=== PATIENT | male | born 1965 | race Caucasian/White ===

== ENCOUNTER → 2017-02-15 10:47 | Outpatient (CLI) | payer MEDICARE | END | disposition home or self-care (01) | LOC: D.CATH 10:47 | DX: I20.9 Angina pectoris, unspecified (principal); R94.30 Abnormal result of cardiovascular function study, unspecified; E78.5 Hyperlipidemia, unspecified; E11.9 Type 2 diabetes mellitus without complications; Z01.812 Encounter for preprocedural laboratory examination ==

== ENCOUNTER → 2017-03-01 12:17 | Outpatient (CLI) | payer MEDICARE ==
[2017-02-15 11:16] VITALS: BMI 45.7
[~2017-03-01 12:17] MED LIST: CATAPRES0.1 MG PO; DIOVAN160 MG PO; DYAZIDE 37.5/251 CAP PO; GLUCOPHAGE500 MG PO; JANUVIA100 MG PO; LIPITOR40 MG PO; PLAVIX75 MG PO; TOPROL XL100 MG PO
[2017-03-02 11:17] LABS: HEPATITIS C ANTIBODY <0.1 (0.0-0.9)
== END | disposition home or self-care (01) ==
LOC: D.LAB 12:17 → D.US 13:30
PROVIDERS: Internal Medicine Cardiovascular Disease
DX: Z01.812 Encounter for preprocedural laboratory examination (principal); I65.29 Occlusion and stenosis of unspecified carotid artery

== ENCOUNTER 2017-03-21 05:11 | Inpatient (IN) | payer MEDICARE ==
--- NOTE | 2017-03-13 11:37 | HP ---
PATIENT: LANNY DONG MEDICAL RECORD: [id number] ACCOUNT: [id number] LOCATION:[facility] : 67 ADMISSION DATE: 03/21/17 HISTORY AND PHYSICAL EXAMINATION NameMULANNY PARRISH (51yo, M) ID# [id number]. Date/Time02/23/2017 01:55KIDHC1966[facility] Dept.[facility] ClinicProviderEDDAVID CHAN MDInsuranceMed Primary: [place] Insurance # : [id number] Referring Provider Name : IVONNE CERDA MD Employer Name : UNKNOWN Prescription: Estoreify - This member could not be found in the payer's files. Please verify coverage and all member demographic information. Chief Complaint Coronary artery disease Patient's Care Team Referring Provider (): IVONNE CERDA MD: [address] [place] [address], , Metal Roofing Mechanic: BARBARA GAY MD Patient's Pharmacies [facility] (ERX): [address] [place] [address], , Vitals BP:114/70 sitting R arm 02/23/2017 02:11 pm 102/70 sitting R arm 02/23/2017 02:11 pmHR:88R/R 02/23/2017 02:11 pmHt:5 ft 8 in 02/23/2017 02:08 pmWt:300 lbs 02/23/2017 02:08 pmBMI:45.6 02/23/2017 02:08 pmAllergies Reviewed Allergies NKDAMedications Reviewed Medications cloNIDine 0.1mg daily02/19/17 enteredCindy Brownclopidogrel 75 mg tablet Take 1 tablet(s) every day by oral route.02/23/17 enteredCindy BrownDiovan 160 mg tablet Take 1 tablet(s) every day by oral route.02/19/17 enteredCindy BrownJanuvia 100 mg tablet Take 1 tablet(s) every day by oral route.02/19/17 enteredCindy BrownLipitor 40 mg tablet Take 1 tablet(s) every day by oral route.02/19/17 Isabelle Guometoprolol succinate ER 100 mg tablet,extended release 24 hr Take 1 tablet(s) every day by oral route.02/19/17 Isabelle GuoNovofine Autocover 30 gauge x 1/3" needle USA MJSIQQRE21/17/17 wcixyinmirsqixlprUttrRKV39/18/17 Isabelle Guotriamterene 37.5 mg-hydrochlorothiazide 25 mg tablet Take 1 tablet(s) every day by oral route.02/19/17 enteredSharlene GuoProblems Reviewed Problems Coronary atherosclerosis - Onset: 02/19/2017 Family History Discussed Family History Mother- Heart diseaseFather- Heart diseaseMaternal Grandfather- Heart diseaseMaternal Uncle- Heart diseaseSocial History Discussed Social History Cardiology Family history of heart disease?: Y HISTORY AND PHYSICAL [id number] LANNY DONG Smoking Status: Never smoker High Cholesterol: Y High blood pressure: Y Surgical History Reviewed Surgical History Carotid Endarterectomy - Left Other - cholecystectomy Past Medical History Discussed Past Medical History Angina: Y Dizzy Spells: Y Heart Disease: Y High Blood Pressure: Y Hyperlipidemia: Y Shortness of Breath: Y Stroke: Y Swelling of Ankles, Feet or Hands: Y Documents for Discussion N/A Screening None recorded. HPI Coronary Artery Disease F/U Reported by patient. Associated Symptoms: dyspnea with exertion coronary artery disease ROS Patient reports exercise intolerance but reports no fever, no night sweats, no significant weight gain, and no significant weight loss. He reports chest pain on exertion, shortness of breath when walking, and shortness of breath when lying down but reports no arm pain on exertion, no palpitations, and no known heart murmur. He reports no dry eyes, no irritat ion, and no vision change. He reports no difficulty hearing and no ear pain. He reports no frequent nosebleeds and no nose/sinus problems. He reports no sore throat, no bleeding gums, no snoring, no dry mouth, no mouth ulcers, no oral abnormalities, and n o teeth problems. He reports no jugular vein distension and no swollen glands. He reports no cough, no wheezing, no shortness of breath, and no coughing up blood. He reports no abdominal pain, no vomiting, normal appetite, no diarrhea, not vomiting blood, n o nausea, and no constipation. He reports no incontinence, no difficulty urinating, no hematuria, and no increased frequency. He reports no muscle aches, no muscle weakness, no arthralgias/joint pain, no back pain, and no swelling in the extremities. He r e ports no abnormal mole, no jaundice, and no rashes. He reports no loss of consciousness, no weakness, no numbness, no seizures, no dizziness, and no headaches. He reports no depression, no sleep disturbances, feeling safe in relationship, and no alcohol a buse. He reports no fatigue. He reports no swollen glands and no bruising. He reports no runny nose, no sinus pressure, no itching, no hives, and no frequent sneezing. ROS as noted in the HPI Physical Exam Patient is a 51-year-old male. Constitutional: General Appearance healthy-appearing and obese. Level of Distress NAD. Ambulation ambulating normally. HISTORY AND PHYSICAL [id number] LANNY DONG Cardiovascular: Apical Impulse not displaced or no thrill. Heart Auscultation normal s1 and s2; no murmurs, rubs, or gallops; and RRR. Arterial Pulses no abdominal aorta bruits, femoral bruits, or popliteal bruits and 2+ bilateral, carotid 2+ bilateral, femoral 2+ bilateral, popliteal 2+ bilateral, and dorsalis pedis 2+ bilateral. Edema no edema or varicosities. Lungs: Repiratory Effort no dyspnea. Percussion no hyperresonance or dullness or flatness. Auscultation no wheezing, rhonchi, or rales / crackles and breathing sounds normal, good air movement, and CTA except as noted. Abdomen: Bowl Sounds normal. Inspection and Palpation no tenderness, guarding, masses, or rebound tenderness and soft and non-distended. Liver non-tender and no hepatomegaly. Spleen non-tender and no splenomegaly. Hernia none palpable. Musculoskeletal System: Gait And Stance normal gait and stance. Digits and Nails normal nails and no cyanosis. Neurologic: Cranial Nerves grossly intact. Reflexes DTRs 2+ bilaterally throughout. Sensation grossly intact. Lymph Nodes: Lymph Nodes no cervical LAD, supraclavicular LAD, axillary LAD, or inguinal LAD. Eyes: Lids and Conjunctivae no discharge or pallor and non-injected. Pupils PERRLA. Cornea grossly intact. EOM EOMI. Lens clear. Sclerae non-icteric. Neck: Neck no masses or enlarged lymph nodes and supple, trachea midline, and carotid bruits (left). Thyroid no enlargement or nodules and non-tender. Skin: Inspection and Palpation no rash, lesions, ulcers, jaundice, or abnormal nevi. Assessment / Plan coronary atherosclerosis with angina: Shortness of breath 1. Coronary atherosclerosis - angina equivalent and shortness of breath I25.118: Atherosclerotic heart disease of [place] coronary artery with other forms of angina pectoris Discussion Notes I have discussed the patient's disease process with him and his in detail as well as the alternative method s of treatment we discussed coronary artery bypass including the expected benefits and risk which included bleeding, effects from, stroke, , and the imponderables. He will need to be off Plavix for a week before surgery and we will contact him with a day. He is to come to the emergency room for any unusual symptom changes, chest pain ,or significant shortness of breath HISTORY AND PHYSICAL [id number] LANNY DONG EDWARD MD at 1137 CC: [id number] DICTATION DATE: 02/23/17 1345 INKER MACHINE: CHANDNI 03/08/17 0936 PRE IN [facility] [address] [place] [address]
[2017-03-20 15:35] LABS: BASOPHILS 0.1 % (0-2); EOSINOPHILS 1.5 % (0-7); HEMATOCRIT 39.5 % (42.0-54.0); HEMOGLOBIN 13.4 g/dL (13.5-17.5); IMMATURE GRANULOCYTES 0.2 % (0-5); LYMPHOCYTES 22.4 % (15-50); MCH 30.5 pg (26.0-34.0); MCHC 33.9 g/dL (31.0-37.0); MEAN PLATELET VOLUME 11.6 fL (7.4-10.4); MONOCYTES 5.2 % (2-11); NEUTROPHILS 70.6 % (40-80); PLATELET COUNT 183 10x3/uL (130-400); RBC 4.39 10x6/uL (4.20-6.10); RDW 14.1 % (11.5-14.5); WBC 9.1 10x3/uL (4.8-10.8)
[2017-03-20 15:48] LABS: HEMOGLOBIN A1C 11.1 % (4.8-6.0)
[2017-03-20 15:58] LABS: ALBUMIN 3.1 g/dL (3.4-5.0); ALKALINE PHOSPHATASE 110 U/L (46-116); ALT (SGPT) 24 U/L (10-68); CALC OSMOLALITY 288 mosm/kg (275-300); CALCIUM 8.7 mg/dL (8.5-10.1); CARBON DIOXIDE 28.9 mmol/L (21.0-32.0); CHLORIDE - SERUM 101 mmol/L (98-107); CHOLESTEROL, TOTAL 111 mg/dL (0-200); CREATININE - SERUM 0.9 mg/dL (0.6-1.3); PHOSPHOROUS 3.7 mg/dL (2.5-4.9); POTASSIUM - SERUM 3.9 mmol/L (3.5-5.1); PROTEIN - SERUM 7.5 g/dL (6.4-8.2); SODIUM 137 mmol/L (136-145); T4 THYROXIN - FREE 1.14 ng/dL (0.76-1.46); THYROID STIMULATING HORMONE 2.26 uIU/mL (0.36-3.74); UREA NITROGEN 19 mg/dL (7-18); URIC ACID 5.2 mg/dL (2.6-7.2); eGFR NON AFRICAN AMERICAN > 90 mL/min (90-120)
[2017-03-20 15:59] LABS: APTT 26.8 SECONDS (22.8-39.4); INR 0.97 (0.85-1.17); PROTIME 12.7 SECONDS (11.6-15.0)
[2017-03-20 16:07] LABS: COLD SCREEN @ 4 DEGREES 2+ (NEGATIVE); COLD SCREEN ROOM TEMP NEGATIVE (NEGATIVE); GLUCOSE 333 mg/dL (74-106)
[2017-03-20 16:26] LABS: APPEARANCE CLEAR (CLEAR); BILIRUBIN NEGATIVE (NEGATIVE); COLOR YELLOW (YELLOW); GLUCOSE 500 mg/dL (NEGATIVE); KETONE NEGATIVE (NEGATIVE); NITRITE NEGATIVE (NEGATIVE); PROTEIN NEGATIVE (NEGATIVE); SPECIFIC GRAVITY 1.015 (1.005-1.020); UROBILINOGEN NORMAL (NORMAL)
[2017-03-21] VITALS (33 sets, daily range): BP systolic 90–190; BP diastolic 50–97; BMI 44.9; BMI 21.4
--- NOTE | 2017-03-21 01:00 | NUR ---
PT RESTING COMFORTABLY. PT SYSTOLIC BP DROPPING. TOOK HIS MANAGER PRODUCT MANAGEMENT BUTTON AWAY FOR A SHORT TIME AND BP CAME BACK TO NORMAL.
[2017-03-21 09:04] LABS: PLT FUNCT.(P2Y12) PLAVIX 277 PRU (194-418)
[2017-03-21 15:07] LABS: HEMOGLOBIN 11.5 g/dL (13.5-17.5); MCH 30.2 pg (26.0-34.0); MCHC 33.8 g/dL (31.0-37.0); MCV 89.2 fL (80.0-100.0); MEAN PLATELET VOLUME 11.5 fL (7.4-10.4); RBC 3.81 10x6/uL (4.20-6.10); RDW 14.1 % (11.5-14.5); WBC 25.8 10x3/uL (4.8-10.8)
[2017-03-21 15:19] LABS: APTT 40.5 SECONDS (22.8-39.4); INR 1.26 (0.85-1.17); PROTIME 15.7 SECONDS (11.6-15.0)
[2017-03-21 15:22] LABS: CALCIUM 7.6 mg/dL (8.5-10.1); CARBON DIOXIDE 24.5 mmol/L (21.0-32.0); CHLORIDE - SERUM 107 mmol/L (98-107); SODIUM 145 mmol/L (136-145); UREA NITROGEN 19 mg/dL (7-18); eGFR NON AFRICAN AMERICAN 84 mL/min (90-120)
[2017-03-21 15:23] LABS: CALC OSMOLALITY 297 mosm/kg (275-300); GLUCOSE 230 mg/dL (74-106); POTASSIUM - SERUM 3.2 mmol/L (3.5-5.1)
--- NOTE | 2017-03-21 15:52 | NUR ---
PT ARRIVED BY BED TO ROOM. SWITCHED OVER TO ICU MONITORS.
--- NOTE | 2017-03-21 17:00 | NUR ---
DR. CHAN CALLED AND REPORTED PT'S CONTINUAL HIGH FSBS. STATED THAT PT IS ON 20 UNITS OF REGULAR INSULIN AN HOUR AT THIS TIME. STATED TO TIRATE GTT ACCORDING TO FSBS. STATES HE EXPECTS HIS FSBS'S TO BE ELEVATED. WILL CONT TO ASSESS.
--- NOTE | 2017-03-21 18:00 | NUR ---
DR. CHAN AT BEDSIDE. UPDATE PROVIDED.
--- NOTE | 2017-03-21 19:30 | NUR ---
REPORT RECIEVED ASSESSMENT COMPLTED. SEE FLOW SHEET FOR FURTHER DETAILS. PT SWAN GANNZ ESTIMATED AT 59 CM. CHEST TUBES NOTED TO 20 CM SUCTION AND NO LEAKS NOTED. TPM WIRES SECURED TO CHEST. WEANING OFF VENT NOW. WILL CONTINUE 1 ON 1 NURSING CARE.
--- NOTE | 2017-03-21 19:46 | NUR ---
ORAL CARE DONE
--- NOTE | 2017-03-21 19:57 | NUR ---
NOTIFIED ABOUT ABG. NEW ORDERS PROVIDED. WILL CONTINUE 1 ON 1 NURSING CARE.
--- NOTE | 2017-03-21 21:12 | NUR ---
PT EXTUBATED. RESTRAINTS REMOVED. FAMILY INTO SEE PT. WILL CONTINUE 1 ON 1 NURSING CARE.
--- NOTE | 2017-03-21 23:00 | NUR ---
REASSESSMENT COMPLETED. NO ACUTE CHANGES AT THIS TIME. PT POSITINED FOR COMFORT. WILL CONTINUE 1 ON 1 NURSING CARE.
[2017-03-22] VITALS (93 sets, daily range): BP systolic 80–119; BP diastolic 31–85; BMI 48.0
--- NOTE | 2017-03-22 01:00 | NUR ---
PT RESTING COMFORTABLY. SYSTOLIC BP TRENDING DOWN DO TO PAINTER SET USE. VERY SENSITIVE TO PAINTER SET USE. WILL CONTINUE 1 ON 1 NURSING CARE.
--- NOTE | 2017-03-22 03:00 | NUR ---
REASSESSMENT COMPLETED. NO CHANGES AT THIS TIME. REPOSITIONED FOR COMFORT. EDUCATED PT ON COUGHING AND DEEP BREATHING. I.S. WITH THE BEST EFFORT OF 500. WILL CONTINUE 1 ON 1 NURSING CARE.
--- NOTE | 2017-03-22 05:51 | NUR ---
NOTIFIED OF URINE OUTPUT AND BP SYSTOLIC IN THE 80'S. UPDATED ON LABS AND ABG. STATED HE WOULD SEE HIM THIS MORNING. WILL CONTIUE 1 ON 1 NURSING CARE.
[2017-03-22 05:57] LABS: HEMATOCRIT 30.5 % (42.0-54.0); HEMOGLOBIN 10.4 g/dL (13.5-17.5); MCH 30.8 pg (26.0-34.0); MCHC 34.1 g/dL (31.0-37.0); MCV 90.2 fL (80.0-100.0); MEAN PLATELET VOLUME 11.1 fL (7.4-10.4); RBC 3.38 10x6/uL (4.20-6.10); RDW 14.9 % (11.5-14.5); WBC 22.1 10x3/uL (4.8-10.8)
[2017-03-22 06:10] LABS: ALBUMIN 3.5 g/dL (3.4-5.0); BILIRUBIN - TOTAL 0.9 mg/dL (0.2-1.3); CALCIUM 7.8 mg/dL (8.5-10.1); CARBON DIOXIDE 29.8 mmol/L (21.0-32.0)
[2017-03-22 06:12] LABS: ANION GAP 11.6 mmol/L (8-16); CREATININE - SERUM 1.3 mg/dL (0.6-1.3); POTASSIUM - SERUM 4.4 mmol/L (3.5-5.1)
--- NOTE | 2017-03-22 06:52 | NUR ---
ORAL CARE DONE WITH PERIDEX
--- NOTE | 2017-03-22 07:15 | NUR ---
REPORT RECIEVED FROM JUNIOR MEDIA BUYER NURSE. PT RESTING IN BED. FULL ASSESSMENT COMPLETE PER FLOWSHEET. VSS AT THIS TIME. CALL LIGHT IN REACH. BED IN LOW POSITION. PLAN OF CARE CONT'D. 1:1 CARE CONT'D. WILL MONITOR FOR CHANGES.
--- NOTE | 2017-03-22 09:00 | NUR ---
DR. CHAN AT BEDSIDE. UPDATE PROVIDED.
--- NOTE | 2017-03-22 11:00 | NUR ---
REASSESSMENT COMPLETE PER FLOWSHEET. REFER FOR DETAILS.
--- NOTE | 2017-03-22 13:57 | TEE ---
PATIENT:LANNY DONG MEDICAL RECORD: [id number] LOCATION:[place] [address] AGE OF PATIENT: 51 ADMISSION DATE: 03/21/17 SEX: M REFERRING PHYSICIAN: INTERPRETING PHYSICIAN: BARBARA GAY MD TRANSESOPHAGEAL ECHOCARDIOGRAM KYUNG CHARGE Y INDICATIONS: CABG PREMEDICATIONS: PATIENT'S RESPONSE PROCEDURE DOPPLER MEASUREMENTS: LVIT LA PA RA LVOT RVOT Asc. Ao AV Gradient Peak AV Mean AV Area MV Gradient Peak MV Mean MV Area INTERPRETATION: LVd: 4.7 cm LVs: 2.9 cm Doppler: 2-D: COLOR FLOW DOPPLER NORMAL SALINE STUDY: MISCELLANOUS: DIAGNOSIS: PLAN: Net Front End Developer:3 Dr. Whalen Extras Casting Director: 1 ARTURO BRYSON COMMENTS: DATE OF SERVICE: 03/21/2017 TRANSESOPHAGEAL ECHO DESCRIPTION OF PROCEDURE: Intraoperatively, post-CABG shows LVH. LV internal dimensions appear normal. Wall motion is normal except for mild septal hypokinesis consistent with postop CABG state. Estimated EF 50%. Aortic valve appears tricuspid. Left atrium appears normal. Mitral valve appears normal with no significant MR. Right-sided chambers appear grossly normal per TRANSESOPHAGEAL ECHOCARDIOGRAM REPORT [id number] LANNY DONG intraoperative transesophageal post-CABG. TRANSINT:[id number] Voice Confirmation ID: [id number] DOCUMENT ID: [id number] at 1357 CC: [id number] DICTATION DATE: 03/21/17 1259 SHERIFFS DETECTIVE: 03/22/17 0135 ADM IN [facility] [address] [place] [address]
--- NOTE | 2017-03-22 14:45 | NUR ---
NARCISA LAUREANO CALLED IN REGARDS TO PT'S CURRENT ABG.
--- NOTE | 2017-03-22 15:00 | NUR ---
REASSESSMENT COMPLETE PER FLOWSHEET. REFER FOR DETAILS.
--- NOTE | 2017-03-22 15:50 | NUR ---
PLACED ON BIPAP PER ORDER. WILL CONT TO ASSESS.
--- NOTE | 2017-03-22 17:00 | NUR ---
AT BEDSIDE. UPDATE PROVIDED.
--- NOTE | 2017-03-22 17:40 | OP ---
PATIENT NAME: LANNY DONG MEDICAL RECORD: [id number] :67 LOCATION:[facility] ADMISSION DATE:03/21/17 SURGEON: JASON LARA MD DATE OF OPERATION: 03/21/2017 SURGEON: Jason Lara MD ANESTHESIA: General endotracheal, Dr. Blue. OPERATIONS PERFORMED: Aortocoronary artery bypass utilizing left internal thoracic, left anterior descending, reverse saphenous vein segment to the posterior descending and reverse saphenous vein segment to sequential first obtuse marginal, sequential second obtuse marginal. PREOPERATIVE DIAGNOSES: Angina pectoris and severe occlusive coronary artery disease. POSTOPERATIVE DIAGNOSES: Angina pectoris and severe occlusive coronary artery disease. INDICATION FOR OPERATION: Angina pectoris. FINDINGS AT OPERATION: The right greater saphenous vein in the thigh was of excellent quality as was the left internal thoracic artery. The target vessels were of good quality and caliber as well. The left anterior descending was intramyocardial in its proximal portion. The distal portion is not graftable and will require further intervention in the future. ESTIMATED BLOOD LOSS: Cell Saver was used. DESCRIPTION OF PROCEDURE: After informed consent, adequate preoperative medication evaluation, the patient was brought to the operating room, placed on the table in the supine position. After induction of general endotracheal anesthesia and application of appropriate monitoring devices, the chest, neck, abdomen, and both legs were prepped and draped in a sterile field, utilizing Betadine scrub, alcohol, and Betadine solution. A Betadine-impregnated drape was also used. Saphenous vein was harvested from right leg and prepared for reverse saphenous vein grafting. The leg was closed over drains utilizing 3-0 Vicryl and skin yasmeen. A median sternotomy incision was made and dissection carried down to the fascia. Hemostasis was maintained with electrocautery. Sternum was divided. Innominate vein was identified and protected. Left internal thoracic was taken down and prepared for grafting. The patient was given a calculated dose of heparin, cannulated in the standard fashion utilizing 1 aortic, 1 two-stage cannula in the atrium and inferior vena cava. The patient was placed on cardiopulmonary bypass, cooled to 32 degrees centigrade. A cross-clamp was placed just proximal to the aortic cannula and the patient was given cardioplegic solution through the aortic root. The patient was also given cardioplegic solution throughout the procedure through the root, through the grafts or a combination of both. The first vessel to be grafted was the posterior descending coronary artery, was grafted end-to-side utilizing a running 7-0 Prolene suture. Graft was measured back to the aorta and a proximal anastomosis fashioned utilizing running 6-0 Prolene suture. Next, the obtuse marginal 2 was grafted end-to-side utilizing a running 7-0 Prolene suture. Graft was measured back to the first obtuse marginal and a [id number]-az-[id number] anastomosis was fashioned utilizing a running 7-0 Prolene suture. The graft was OPERATIVE REPORT [id number] LANNY DONG measured back to the aorta and a proximal anastomosis fashioned utilizing running 6-0 Prolene suture. Next, left internal thoracic was brought through a hole in pericardium, sutured left anterior descending end-to-side utilizing a running 8-0 Prolene suture. Pedicle was attached to epicardium with a 6-0 Prolene suture. All maneuvers to remove trapped air were performed. The patient was given warm cardioplegic reperfusion and controlled reperfusion. The patient rewarmed to 37 degrees centigrade. Two atrial and two ventricular pacing wires were placed in the heart and brought out through the epigastric area. The patient was weaned from cardiopulmonary bypass. After being stable off bypass, he was given calculated dose of protamine to reverse the heparin. Hemostasis was achieved. A #40 right angle and #36 chest tubes were brought in through the epigastric area and placed in the mediastinum. The chest was again irrigated. Instrument count and sponge count were correct times 2. Chest was closed in layers utilizing #7 wire on the sternum, #2 Vicryl on the linea alba and pectoralis fascia. Subcutaneous tissue was approximated with 3-0 Vicryl. Skin approximated with 3-0 subcuticular Vicryl. Sterile dressings were applied. The patient tolerated the procedure well and transferred to cardiovascular recovery in critical, but stable condition. TRANSINT:[id number] Voice Confirmation ID: [id number] DOCUMENT ID: [id number] JASON LARA MD at 1740 CC: [id number] DICTATION DATE: 03/21/17 1544 ASSISTIVE TECHNOLOGY SPECIALIST: 03/21/17 1828 ADM IN [place] [address] [place] [address]
--- NOTE | 2017-03-22 19:00 | NUR ---
DR. CHAN CALLED IN REGARDS TO PT'S SBP BEING IN LOW 80'S. ABG'S READ TO DR. CHAN. CURRENT VS REPORTED. STATED TO INCREASE DOPAMINE BACK TO 5MCG. WILL CONT TO ASSESS.
[2017-03-22 19:07] LABS: HEMATOCRIT 28.5 % (42.0-54.0); HEMOGLOBIN 9.2 g/dL (13.5-17.5); MCH 29.9 pg (26.0-34.0); MCHC 32.3 g/dL (31.0-37.0); MCV 92.5 fL (80.0-100.0); MEAN PLATELET VOLUME 11.6 fL (7.4-10.4); RBC 3.08 10x6/uL (4.20-6.10); RDW 15.1 % (11.5-14.5); WBC 20.7 10x3/uL (4.8-10.8)
--- NOTE | 2017-03-22 19:30 | NUR ---
SHIFT ASSESSMENT COMPLETED. SEE ASSESSMENT FLOWSHEET. SLIGHTLY LETHARGIC BUT DOES OPEN EYES AND ASK FOR WATER. WANTS TO HAVE A BREAK FROM MASK. INFORMED I CAN REMOVE IT BRIEFLY BUT IT WILL HAVE TO BE PUT BACK ON. VERBALIZES UNDERSTANDING. WHEN ASKED ABOUT HIS BREATHING, FEELS LIKE HE IS SHORT OF BREATHE. INFORMED OF CURRENT NORMAL O2 SATS. ENCOURAGED DEEP BREATHING AND COUGHING. SHALLOW BREATHS NOTED. ABOUT TO MOVE EXTREMITIES WEAKLY. POOR DENTITION/MISSING TEETH NOTED TO UPPER MOUTH. WILL CONTINUE TO MONITOR. 1:1 NURSING CARE IN PROGRESS.
--- NOTE | 2017-03-22 20:00 | NUR ---
FAMILY IN AT BEDSIDE FOR VISITATION. AND SISTER UPDATED ABOUT LOWER B/P EARLIER AND NOW BACK TO WHERE HE NEEDS TO BE. INFORMED HE HAS JUST HAD SIPS OF WATER AFTER BRIEFLY REMOVING BIPAP MASK AND THAT IF HE ASK, HE CAN NOT HAVE ANY MORE AT THIS TIME. WILL MONITOR.
--- NOTE | 2017-03-22 21:40 | NUR ---
TOOK OFF BIPAP MASK AND PLACED TO 5LPM/NC. 2100 PO MEDS GIVEN. REPORTS THROAT SORE BUT ABLE TO SWALLOW. ORIENTED X4. ASKING WHEN ALL "THIS STUFF IS GOING TO COME OUT". EXPLAINED POSSIBLE TOMORROW. TURNED AND REPOSITIONED TO LEFT SIDE. BED TILTED SOME. RUSH SEATER BUTTON PRESSED BEFORE MOVING PER REQUEST. PAIN A 8/10 ON NUMBER SCALE TO MID CHEST AND DESCRIBED ACHING. WILL MONITOR.
--- NOTE | 2017-03-22 22:20 | NUR ---
TOOK BIPAP MASK OFF HIMSELF DUE TO NOISES AND NOT FITTING CORRECTLY AFTER MUTIPLE ATTEMPTS TO FIT. R.T. MADE AWARE AND OKAY'ED TO HAVE OFF FOR A BIT. O2 @ 5LPM/NC. WILL MONITOR.
--- NOTE | 2017-03-22 22:39 | NUR ---
ORAL CARE DONE
--- NOTE | 2017-03-22 23:35 | NUR ---
B/P RUNNING SBP <90 AND MAP <60 ON BOTH A-LINE AND NIBP. ABG'S OBTAINED.
--- NOTE | 2017-03-22 23:45 | NUR ---
PULLED UP IN BED AND TURNED AND REPOSITIONED. TREATED ABG RESULTS WITH 1 AMP CALCIUM CHLORIDE AND 5 MEQ KCL IN BURETROL TO RUN OVER 1 HOUR.
[2017-03-23] VITALS (96 sets, daily range): BP systolic 82–131; BP diastolic 51–73
--- NOTE | 2017-03-23 | NUR ---
BIPAP MASK PLACED BACK ON.
--- NOTE | 2017-03-23 02:00 | NUR ---
BIPAP MASK TAKEN OFF PER REQUEST. SIPS OF WATER GIVEN.
--- NOTE | 2017-03-23 02:45 | NUR ---
TURNED AND REPOSITIONED TO SUPINE POSITION. FSBS ASSESSED. WILL MAINTAIN INSULIN GTT AT CURRENT RATE. MORPHINE FRUIT SORTER BUTTON PRESSED PER REQUEST AFTER MOANING AFTER MOVEMENT. WILL MONITOR.
--- NOTE | 2017-03-23 02:50 | NUR ---
I.S. DONE WITH R.T. PULLS 500ML AT BEST. COUGHING EXERCISES DONE WITH HIM AFTER I.S. NON-PRODUCTIVE, WEAK COUGH NOTED. WILL MONITOR.
--- NOTE | 2017-03-23 04:10 | NUR ---
PORTABLE CHEST XRAY COMPLETED. MOANING DURING AND AFTER. B/P SYSTOLIC 90'S. EMPTIED JARED DRAINS. REASSESSMENT COMPLETED. SEE ASSESSMENT FLOWSHEET.
--- NOTE | 2017-03-23 05:30 | NUR ---
CT AND TPM INSERTION SITE DRSG CHANGED PER PROTOCOL/ORDERS. SWEATING NOTED AND 4X4'S SATURATED. RT LEG DRSG'S STILL DRY. VALENCIA CATHETER CARE COMPLETED. NEW TOP SHEET APPLIED. DECLINES TO TURN TO A SIDE AT THIS TIME. EYES CLOSE AND SNORE-LIKE NOISES HEARD WHILE DRSG CHANGED. WILL MONITOR.
--- NOTE | 2017-03-23 05:50 | NUR ---
AM LABS DRAWN FROM RT RADIAL A-LINE WITHOUT DIFFICULTY. FLUSHES WELL. NO ACUTE DISTRESS NOTED. 1:1 NURSING CARE IN PROGRESS.
[2017-03-23 06:17] LABS: HEMOGLOBIN 9.4 g/dL (13.5-17.5); MCH 30.1 pg (26.0-34.0); MCHC 32.4 g/dL (31.0-37.0); MCV 92.9 fL (80.0-100.0); RBC 3.12 10x6/uL (4.20-6.10); RDW 15.1 % (11.5-14.5); WBC 20.1 10x3/uL (4.8-10.8)
[2017-03-23 06:43] LABS: ALBUMIN 2.7 g/dL (3.4-5.0); ANION GAP 10.5 mmol/L (8-16); BILIRUBIN - TOTAL 0.68 mg/dL (0.2-1.3); CALCIUM 8.6 mg/dL (8.5-10.1); CARBON DIOXIDE 29.7 mmol/L (21.0-32.0); CREATININE - SERUM 1.2 mg/dL (0.6-1.3); POTASSIUM - SERUM 4.2 mmol/L (3.5-5.1); PROTEIN - SERUM 6.1 g/dL (6.4-8.2)
--- NOTE | 2017-03-23 06:45 | NUR ---
PULLING O2 CANNULA OUT OF NARES. REPORTS HE JUST DOES NOT WANT TO WEAR IT ANY LONGER. EXPLAINED THE NEED TO KEEP IT IN. DECREASED O2 TO 4LPM/NC. WANTING TO SIT UP. WHEN QUESTIONED WANTED TO SIT UP OUT OF BED. EXPLAINED HE CAN NOT AT THIS TIME AND WHY. WILL REPOSITION FOR COMFORT.
--- NOTE | 2017-03-23 06:57 | NUR ---
REPORT GIVEN TO KELLIE BREWSTER.
--- NOTE | 2017-03-23 07:30 | NUR ---
REPORT RECIEVED FROM CHERRY PITTER NURSE. FULL ASSESSMENT COMPLETE PER FLOWSHEET. PLAN OF CARE CONT'D. 1:1 NURSING CONT'D.
--- NOTE | 2017-03-23 07:58 | NUR ---
ABG OBTAINED. PT PLACED BACK ON BIPAP MASK. WILL CONT TO ASSESS.
--- NOTE | 2017-03-23 08:18 | NUR ---
DR. CHAN AT BEDSIDE. ADJUSTED TPM VVI 50/ VMA 10. PT NOW IN SR. WILL CONT TO ASSESS.
--- NOTE | 2017-03-23 09:15 | NUR ---
CORDORONE BOLUS ADMINISTERED AND GTT IS INFUSING ORDERED. WILL CONT TO ASSESS.
--- NOTE | 2017-03-23 10:04 | NUR ---
* Is the patient Alert and Oriented? Yes 0 * How many steps to enter\exit or inside your home? 3-4 0 * PCP Dr. Bry John in [place] 0 * Pharmacy [facility] 0 * Preadmission Environment Home with Family 0 * ADLs Independent 0 * List name and contact numbers for known caregivers / representatives who currently or will assist patient after discharge: Spouse - Kalina [phone] 0 * Additional services required to return to the preadmission environment? No 0 * Can the patient safely return to the preadmission environment? Yes 0 * Has this patient been hospitalized within the prior 30 days at any hospital? No Patient Name: LANNY DONG Admission Status: Elective Accout number: [id number] Admission Date: 03-21-2017 : 1965 Admission Diagnosis: Attending: CHANA CHAN Current LOS: 2 Anticipated DC Date: 03-28-2017 Planned Disposition: Home Primary Insurance: [employer] Discharge Planning Comments: Patient currently on Bipap. CM met with spouse, Kalina, at bedside. She reports patient lives at home with her. She reports he was fully independent with all ADL's & IADL's, works multimedia artist as a straw boss. She denies having any DME or home health services in the past. At dc, he plans to return home with his . Spouse inquired about home health services at discharge. Provided information on HH services. Will obtain order and send referral if HH services necessary at discharge. CM will follow & assist as needed. Hoop Bending Machine Operator: Ethel Cruz
--- NOTE | 2017-03-23 10:15 | NUR ---
TORRES RN CALLED IN REGARDS TO PT'S PA PRESSURE TRENDING UP. STATED SHE WOULD NOTIFY DR. CHAN ONCE HE WAS OUT OF SURGERY. NO ORDERS RECIEVED AT THIS TIME.
--- NOTE | 2017-03-23 12:00 | NUR ---
FAMILY AT BEDSIDE. UPDATE PROVIDED.
--- NOTE | 2017-03-23 14:00 | NUR ---
SET UP SUPPLIES TO PULL LINES ON PT. VSS. NO CHANGES NOTED AT THIS TIME.
--- NOTE | 2017-03-23 15:30 | NUR ---
CT'S AND JARED DRAINS REMOVED PER ORDERS. DRESSING'S CHANGED. NO ISSUES NOTED UPON REMOVAL. TOLERATED WELL.
--- NOTE | 2017-03-23 16:30 | NUR ---
BATH AND FULL LINEN CHANGE PROVIDED.
--- NOTE | 2017-03-23 18:00 | NUR ---
AT BEDSIDE. DR. CHAN PROVIDED UPDATE.
--- NOTE | 2017-03-23 18:51 | NUR ---
ORAL CARE PERFORMED WITH PERIDEX ORDERED
--- NOTE | 2017-03-23 19:10 | NUR ---
SHIFT ASSESSMENT COMPLETED. SEE ASSESSMENT FLOWSHEET. WHILE RECEIVING REPORT, PT TOOK BIPAP MASK OFF. O2 CANNULA PLACED PER DAY SHIFT RN AND GISSELLE Whitney MADE AWARE. WILL GIVE BIPAP MASK BREAK UNTIL 2100 MEDS GIVEN. PT VERBALIZED UNDERSTANDING. RT IJ SWAN-LOCKED AND SALINE LOCKED. ALL IV FLUIDS/GTTS INFUSING TO LEFT SC CVL. 1:1 NURSING CARE IN PROGRESS. WILL MONITOR.
--- NOTE | 2017-03-23 19:45 | NUR ---
PULLED TO ONE SIDE OF BED TO TURN TO OPPOSITE DIRECTION. POSITIONED TO LEFT SIDE WITH PILLOW SUPPORT PER REQUEST. WILL CONTINUE TO MONITOT. 1:1 NURSING CARE IN PROGRESS.
--- NOTE | 2017-03-23 20:05 | NUR ---
IN FOR VISITATION. UPDATE GIVEN. QUESTIONS ANSWERED.
--- NOTE | 2017-03-23 21:15 | NUR ---
2100 MEDS GIVEN-SEE EMAR INCLUDING PAIN MEDS PER REQUEST FOR ACHING CHEST PAIN A 5/10 ON NUMBER SCALE. PULLED UP IN BED AND TURNED TO RT SIDE PER REQUEST. TO BE REPOSITIONED. DAUGHTERS AT BEDSIDE X2.
--- NOTE | 2017-03-23 21:30 | NUR ---
PLACED ON BIPAP MASK AFTER VISITORS NOW LEAVING. IS GOING HOME WITH DAUGHTERS. WANTS TO BE CALLED IF ANYTHING CHANGES.
--- NOTE | 2017-03-23 22:08 | NUR ---
Devonte PITTS DECREASED FIO2 TO 35% VIA BIPAP MASK. WILL MONITOR.
--- NOTE | 2017-03-23 22:37 | NUR ---
DECREASED DOPAMINE TO 3.4 MCG/KG/MIN. EYES CLOSED. WILL MONITOR.
--- NOTE | 2017-03-23 23:43 | NUR ---
TOOK HIS BIPAP MASK OFF. EXPLAINED NOT TO DO THAT WITHOUT LETTING ME KNOW. O2 PLACED VIA CANNULA AT 2.5L/MIN. REPORTED HIS PAIN EASED UP "A LITTLE BIT" WHEN ASKED. 1:1 NURSING CARE IN PROGRESS.
[2017-03-24] VITALS (61 sets, daily range): BP systolic 93–156; BP diastolic 43–79
--- NOTE | 2017-03-24 00:03 | NUR ---
WANTING TO BE REPOSITIONED IN BED. WILL OBTAIN ASSISTANCE AND DO SO.
--- NOTE | 2017-03-24 00:15 | NUR ---
PULLED UP IN BED THEN TURNED TO LEFT SIDE. SIPS OF WATER GIVEN WHEN OFFERED. DENIES TO HAVE HEELS ELEVATED ONTO PILLOWS. WILL MONITOR.
--- NOTE | 2017-03-24 00:46 | NUR ---
PAIN PILL GIVEN PER REQUEST AFTER ASKING/OFFERING. REPORTS PAIN A 5/10 ON NUMBER SCALE TO INCISION. BIPAP MASK PLACED BACK ON PER R.T. GISSELLE DUE TO O2 SATS DROPPING TO 80'S WHILE EYES CLOSED. WILL MONITOR.
--- NOTE | 2017-03-24 02:15 | NUR ---
FSBS ASSESSED. INSULIN GTT REMAINS OFF. IV PROTONIX GIVEN SLOW IVP. EYES CLOSED. NO ACUTE DISTRESS NOTED. WEANING DOPAMINE PER PARAMETERS. WILL MONITOR. 1:1 NURSING CARE IN PROGRESS.
--- NOTE | 2017-03-24 02:35 | NUR ---
TOOK HIS BIPAP MASK OFF. BREATHING TREATMENT WAS INLINE. DEEP BREATHING ENCOURAGED. PLACED ON 3LPM/NC VIA CANNULA. SIP OF WATER GIVEN PER REQUEST. DENIES TO BE TURNED IN BED AT THIS TIME. WILL MONITOR.
--- NOTE | 2017-03-24 02:53 | NUR ---
O2 SAT DROPPED TO 79% AT THE LOWEST. AWAKE, ENCOURAGING DEEP BREATHS AND NOT COMING UP QUICK ENOUGH. PLACED BACK ONTO BIPAP 20/10 FIO2 25%. WILL MONITOR.
--- NOTE | 2017-03-24 03:27 | NUR ---
DECREASED DOPAMINE TO 2.4 MCG/KG/MIN. SBP 115-120'S. WILL MONITOR.
--- NOTE | 2017-03-24 03:33 | NUR ---
STARTED HAVING IRREGULAR BEATS. POSSIBLE MULTIPLE PAC'S-12 LEAD EKG REQUESTED EARLY DUE TO DYSRHYTHMIA. WILL OBTAIN ABG.
--- NOTE | 2017-03-24 03:50 | NUR ---
NEW IV BURETROL HUNG WITH KCL AND CALCIUM CHLORIDE RIDERS HUNG DUE TO ABG RESULTS. GOING IN AND OUT OF AFIB ON THE MONITOR. RATES 80-110.
--- NOTE | 2017-03-24 04:07 | NUR ---
PORTABLE CHEST XRAY COMPLETED. TOLERATED WELL. REMAINS ON BIPAP. REASSESSMENT COMPLETED. SEE ASSESSMENT FOR FURTHER DETAILS. WILL MONITOR. 1:1 NURSING CARE IN PROGRESS.
--- NOTE | 2017-03-24 04:10 | NUR ---
DR. CHAN CALLED AND MADE AWARE OF HEART RHYTHM CHANGES AND CURRENT ABG RESULTS AND HEMODYNAMIC MONITOR READINGS. NEW ORDERS RECEIVED. CORDARONE BOLUS THEN STARTED VIA ALARIS PUMP WITH ALREADY HANGING CORDARONE GTT. WILL MONITOR.
--- NOTE | 2017-03-24 04:28 | NUR ---
WENT INTO A LOWER HR RHYTHM WITH A BEAT, PAC FOLLOWED BY A PAUSE. HR PERFUSING 35-40. SBP DROPPED TO THE 90'S. MULTIPLE 12-LEAD EKG'S OBTAINED. CHANGED TO DDD 100; 10; 10 TO GET BETTER B/P AND CARDIAC OUTPUT. DR. CHAN INFORMED AND NEW ORDERS RECEIVED AT 0500 AFTER ATTEMPTING TO FIX PRIOR TO INFORMING. TPM NOW AT DDD 80; 10; 10 PER ORDER. AV PACED ON THE MONITOR.
--- NOTE | 2017-03-24 05:09 | NUR ---
NITRO GTT STARTED FOR SBP >140 AT 5ML/HR. WILL MONITOR AND TITRATE.
--- NOTE | 2017-03-24 06:10 | NUR ---
AM LAB SPECIMEN DRAWN FROM RT RADIAL A-LINE WITHOUT DIFFICULTY. GLUCOSE LEVEL ASSESSED. SUGAR-160, INCREASED INSULIN GTT TO 4 UNITS/HR. WILL MONITOR.
[2017-03-24 06:31] LABS: HEMATOCRIT 27.6 % (42.0-54.0); HEMOGLOBIN 8.9 g/dL (13.5-17.5); MCH 30.2 pg (26.0-34.0); MCHC 32.2 g/dL (31.0-37.0); MCV 93.6 fL (80.0-100.0); MEAN PLATELET VOLUME 11.9 fL (7.4-10.4); RBC 2.95 10x6/uL (4.20-6.10); RDW 14.8 % (11.5-14.5)
[2017-03-24 06:32] LABS: WBC 13.9 10x3/uL (4.8-10.8)
[2017-03-24 06:50] LABS: ALBUMIN 2.3 g/dL (3.4-5.0); ALKALINE PHOSPHATASE 126 U/L (46-116); ALT (SGPT) 259 U/L (10-68); BILIRUBIN - TOTAL 0.84 mg/dL (0.2-1.3); CALC OSMOLALITY 289 mosm/kg (275-300); CALCIUM 8.6 mg/dL (8.5-10.1); CARBON DIOXIDE 26.3 mmol/L (21.0-32.0); CHLORIDE - SERUM 104 mmol/L (98-107); CREATININE - SERUM 1.1 mg/dL (0.6-1.3); GLUCOSE 149 mg/dL (74-106); POTASSIUM - SERUM 4.3 mmol/L (3.5-5.1); SODIUM 140 mmol/L (136-145); UREA NITROGEN 35 mg/dL (7-18); eGFR NON AFRICAN AMERICAN 75 mL/min (90-120)
--- NOTE | 2017-03-24 07:08 | NUR ---
REPORT GIVEN TO WILI BREWSTER.
--- NOTE | 2017-03-24 07:13 | NUR ---
ORAL CARE PROVIDED WITH PERIDEX
--- NOTE | 2017-03-24 08:36 | NUR ---
0715-RECIEVED PER FLOW SHEET-RESP RX COMPLETED-REMOVED BIPAP MASK AND PLACED ON MACHINE ZIPPER TRIMMER PER RT-PT ASKED WHERE HE WAS-ORIENTED EASILY AND TO DAY OF WEEK AND SURGERY DAY-INCENTIVE [id number]-WITH GOOD EFFORT-PRODUCTIVE COUGH-R SG IN PLACE-TO MONITOR-DOPAMINE DECREASED TO 1MCG-120SYS 0815- AT [facility]-PT ASLEEP-AWAKENED SAME AND INCENTIVE SPIROMETRY REPEATED WITH EFFORT 750 ONLY AND NON PRODUCTIVE COUGH-
--- NOTE | 2017-03-24 09:41 | NUR ---
0900-PLACED BACK ON BIPAP-RR 10-WITH SNOROUS TYPE RESPIRATIONS-PT STATES DIFFICULT TO STAY AWAKE- 929-FAMILY AT BEDSDIE-ENCURAGED TO KEEP PT AWAKE -BIPAP REMOVED AND PLACED ON BILLBOARD POSTER-PT CONVERSING
--- NOTE | 2017-03-24 09:45 | NUR ---
09[facility]-SNOROUS TYPE RESP-HOB AT 60 DEGREES
--- NOTE | 2017-03-24 17:38 | NUR ---
1110-DR CHAN AT BEDSIDE-NICK D/C'D BY SAME -ORDERS RECIEVED AND NOTED-R JUGULAR CORDIS D/C'D PER PROTOCOL-HEMOSTASIS OBTAINED-DRG APPLIED-R RADIAL JEREMIAS D/C'D PER PROTOCOL-HEMOSTASIS OBTAINED-GOOD CAPILLARY REFILL AND COLOUR-VALENCIA CATH D/C'D WITH TIP INTACT-INSULIN GTT TURNED OFF- 1300-PHYSICAL THERAPY AT BEDSIDE-ASSISTED TO BEDSIDE CHAIR-TOLERATED WELL 1500-ASSISTED TO [id number] TO BED WITH PHYSICAL THERAPY 1550-PT ASLEEP-NOTED SNOROUS RESP-BIPAP PLACED ON PT HOB ELEVATED TO 45 DEGREE-DRG CHANGED TO PACER WIRE SITES-INTACT- 1655-NOTED RHYTHM CHANGE TO 110 VENTRICULAR PACED AND ATRIAL SENSED-DR CHAN NOTIFIED REMAINS ON DDD 80/10/10-ABG DRAWN AND CEFSW-MG2-45-BIPAP LEFT ON PT
--- NOTE | 2017-03-24 18:31 | NUR ---
ORAL CARE PERFORMED WITH PERIDEX ORDERED
--- NOTE | 2017-03-24 19:10 | NUR ---
SHIFT ASSESSMENT COMPLETED. SEE ASSESSMENT. WALKED IN DUE TO BIPAP MACHINE ALARMING. HAD TAKEN OFF THE MASK. PLACED ON NC @ 3.5LPM IT WAS ALREADY SET AT. CALL LIGHT NOW GIVEN AND SHOWN HOW TO WORK IT. SHOOK HEAD "YES" IN UNDERSTANDING IF HE NEEDS NURSING TO CALL. WHEN ASKED, DOES FEEL LIKE HE MAY NEED TO VOID. DENIES TO TRY TO USE THE URINAL AT THIS TIME. REPORTS PASSING GAS. OLD RT RADIAL A-LINE SITE WNL WITHOUT BLEEDING OR BRUISING. GENERALIZED EDEMA NOTED. ORIENTED BUT DID NEED REORIENTING TO TIME OF DAY AND NOT REMEMBERING GETTING UP OOB. THOUGHT THAT WAS YESTERDAY. WILL MONITOR.
--- NOTE | 2017-03-24 20:05 | NUR ---
CALLED DEVELOPMENTAL MATHEMATICS INSTRUCTOR LIGHT. NEEDING URINATE. SAT UP HOB TO 45 DEGREES. URINAL PLACED BETWEEN LEGS WITH A TOWEL. CAME IN FOR 1999 VISITATION. INFORMED TO CALL WHEN DONE. WILL MONITOR.
--- NOTE | 2017-03-24 20:49 | NUR ---
2100 MEDS GIVEN ALONG WITH PAIN MEDS FOR A "MEDIOCRE" PAIN RATING TO ARMS/CHEST. FSBS ASSESSED. SUGAR-153. OFFERED EVENING SNACK. ATE 50% OF A JELLO. ATTEMPTED TO URINATE AFTER PUTTING WARM WASH CLOTHE ON HIM.
--- NOTE | 2017-03-24 21:15 | NUR ---
BLADDER SCANNED AND 505 MAX NOTED. WILL MONITOR.
--- NOTE | 2017-03-24 22:10 | NUR ---
WANTED TO CHANGE THE HOB ON THE BED TO REPOSITION. DECLINED TO BE TURNED IN BED.
--- NOTE | 2017-03-24 22:15 | NUR ---
DR. CHAN MADE AWARE OF NOT VOIDED YET AND BLADDER SCANNER RESULTS. ORDERS TO CALL IN AM IF NOT VOIDED. WILL MONITOR.
--- NOTE | 2017-03-24 23:00 | NUR ---
WANTING BIPAP OFF. ENCOURAGED TO LEAVE ON. REPORTS IT IS BOTHERING HIS EYES. TAKEN OFF BUT WILL REPLACE IN 45 MINUTES. REASSESSMENT COMPLETED. SEE ASSESSMENT FLOWSHEET. AARONUER GIVEN TO USE PER REQUEST. WILL MONITOR.
[2017-03-25] VITALS (25 sets, daily range): BP systolic 103–135; BP diastolic 48–107
--- NOTE | 2017-03-25 00:04 | NUR ---
O2 SAT DROPPED TO 87% ON 2LPM/NC. PLACED BACK ONTO BIPAP MASK.
--- NOTE | 2017-03-25 01:30 | NUR ---
BIPAP MASK REMOVED PER REQUEST. FELT LIKE HE NEEDS TO VOID. URINAL IN PLACE BETWEEN LEGS. B/P CUFF NOT WORKING CORRECTLY. NEW CORD PLACED. 15ML OF JEFFREY URINE NOTED IN URINAL. URINE ALSO NOTED WET TO PINK PAD BELOW HIM AND TO GOWN. PERINEAL AREA CLEANSED AND TURNED AND REPOSITIONED. PAIN PILL THEN GIVEN PER REQUEST FOR PAIN TO SHOULDERS BILATERALLY. SEE EMAR.
--- NOTE | 2017-03-25 02:16 | NUR ---
MUTIPLE ATTEMPTS TO TRY TO GET A B/P CORD &/OR CUFF TO WORK PROPERLY. B/P TAKEN. EYES CLOSED. NO ACUTE DISTRESS NOTED.
--- NOTE | 2017-03-25 02:45 | NUR ---
O2 SATS DROPPING TO 78% WITH PERIODS OF NOTED APNEA. PLACED BIPAP BACK ON.
--- NOTE | 2017-03-25 04:10 | NUR ---
RT LEG DRSG CHANGED AFTER REPOSITIONING IN BED PER REQUEST TO THE LEFT. INCONTINENT OF URINE SOME AND THEN HAD URGE TO GO BUT NO TIME TO COLLECT IN URINAL. HAND TOWEL SATURATED WITH URINE. PERINEAL AREA CLEANSED. WILL MONITOR.
--- NOTE | 2017-03-25 04:40 | NUR ---
BACK TO ROOM VIA WC FROM PA & LAT CHEST XRAY. AMBULATED APPROX. 5 FEET TO BEDSIDE CHAIR AND RECLINED BACK. CONTINUOUS CARDIAC MONITORING EQUIPMENT RECONNECTED. AV PACED ON THE MONITOR. ON 2LPM/NC. WILL MONITOR.
--- NOTE | 2017-03-25 06:00 | NUR ---
WANTED TO GET OUT OF CHAIR AND BACK TO BED DUE TO HIS BOTTOM BURNING. TRANSFERRED WITH ONE MALE NURSE ASSIST. PULLED UP IN BED X3 NURSE ASSIST. NEEDED TO VOID. URINAL OBTAINED AND URINATED 200ML OF CLEAR, JEFFREY URINE. REPORTS IT BURNING WHEN HE URINATES. ENCOURAGED PO FLUIDS.
--- NOTE | 2017-03-25 06:15 | NUR ---
AM LABS DRAWN FROM LEFT SC CVL WITHOUT DIFFICULTY. WILL MONITOR.
[2017-03-25 06:22] LABS: HEMATOCRIT 26.9 % (42.0-54.0); HEMOGLOBIN 8.7 g/dL (13.5-17.5); MCH 30.2 pg (26.0-34.0); MCHC 32.3 g/dL (31.0-37.0); MCV 93.4 fL (80.0-100.0); MEAN PLATELET VOLUME 11.8 fL (7.4-10.4); RBC 2.88 10x6/uL (4.20-6.10); RDW 14.7 % (11.5-14.5)
[2017-03-25 06:38] LABS: ALBUMIN 2.3 g/dL (3.4-5.0); ALKALINE PHOSPHATASE 146 U/L (46-116); BILIRUBIN - TOTAL 0.78 mg/dL (0.2-1.3); CARBON DIOXIDE 29.8 mmol/L (21.0-32.0); CHLORIDE - SERUM 101 mmol/L (98-107); CREATININE - SERUM 1.1 mg/dL (0.6-1.3); POTASSIUM - SERUM 4.3 mmol/L (3.5-5.1); PROTEIN - SERUM 6.1 g/dL (6.4-8.2); SODIUM 134 mmol/L (136-145); UREA NITROGEN 42 mg/dL (7-18); eGFR NON AFRICAN AMERICAN 75 mL/min (90-120)
[2017-03-25 06:40] LABS: ALT (SGPT) 396 U/L (10-68); CALC OSMOLALITY 285 mosm/kg (275-300); GLUCOSE 225 mg/dL (74-106)
--- NOTE | 2017-03-25 07:55 | NUR ---
ORAL CARE PROVIDED WITH PERIDEX
--- NOTE | 2017-03-25 10:45 | NUR ---
0730-PHYSICAL THERAPY AT [facility]-ASSISTED TO SIDE OF CHAIR-PLACED ON TELEMETRY PT RELEUCTANT-TO WALKL -INFORMED REASONING AND IMPORTANCE-PT STATED R SHOULDER HURTING-HOT PACK APPLIED- 075-AMBULATED IN UNIT TO NURSES DESK 0830-PT C/O BUTTOCK HURTING ATTEMPTED TO REPOSITION IN CHAIR-DIFFICULT DUE TO PT GIRTH 0930-NORCO 1 TAB GIVEN FOR CONTINUED GENERALIZED PAIN-AMBULATED TO RESTROOM RETURNED TO CHAIR-INCENTIVE AMAW-304-AXLF
--- NOTE | 2017-03-25 18:38 | NUR ---
ORAL CARE PERFORMED WITH PERIDEX ORDERED
--- NOTE | 2017-03-25 18:47 | NUR ---
1300-AMBULATED WITH PHYSICAL THERAPY-ASSISTED TO BED-
--- NOTE | 2017-03-25 19:10 | NUR ---
Received patient laying in bed with eyes open watching TV, assessment completed per flowsheet. Patient AO x4, slightly lethargic but answers appropriately. Eyes PERRLA @ 4mm with brisk response, sclera is white/clear. S1/S2 noted NSR with HR 80, TPM in use. DDD R-80 A-10 V-10 S-0.8, substernal wires intact/secured with dressing CDI. Breathing is slightly shallow and unlabored on 2L via NC with O2 sat 98%, lung sounds clear bilateral upper with diminished mid and lower. Midsternal dressing CDI, no swelling/bleeding noted. Abdomen is round and soft with bowel sounds active x4, non-tender. Patient utilizes urinal jug, 350ml concentrated yellow urine collected. Full ROM all extremities with all pulses weakly palpable, cap refill < 3 sec with skin warm/dry to touch. R leg incision site x4, dressing CDI. Patient c/o headache 2/, Acetaminophen PRN given without difficulty. Patient denies further needs at this time, all VSS and will continue to monitor.
--- NOTE | 2017-03-25 21:00 | NUR ---
HS Meds given without difficulty, patient denies further needs at this time. TPM A/V sensing, wires secured/intact. No visitors at this time, all VSS and will continue to monitor.
--- NOTE | 2017-03-25 22:55 | NUR ---
Reassessment completed per flowsheet, patient resting in bed with eyes closed. Patient AO x4, slightly lethargic but calm and cooperative. S1/S2 noted NSR on telemetry with pacer spikes and HR 80, rhythmic and regular. TPM in use with settings unchanged from previous, wires secured/intact. Breathing is slightly shallow and unlabored on 2L via NC with O2 sat 96%, lung sounds clear bilateral upper with diminished mid and lower. Midsternal incision dressing CDI, no swelling/bleeding noted. Substernal insertion site dressing CDI, no swelling/bleeding noted. All pulses weakly palpable with cap refill < 3 sec, skin warm/dry with extremities cool to touch. Patient denies pain or other needs at this time, all VSS and will continue to monitor.
[2017-03-26] VITALS (25 sets, daily range): BP systolic 102–134; BP diastolic 54–78
--- NOTE | 2017-03-26 03:10 | NUR ---
Reassessment completed per flowsheet, patient resting in bed with eyes open receiving breathing treatment. Patient AO x4, calm and cooperative. S1/S2 noted with pacer spikes and HR 79, rhythmic and regular. TPM settings unchanged from previous assessment, wires intact/secured. Breathing is slightly shallow and unlabored on 2L via NC with O2 sat 97%, lung sounds clear upper with diminished mid and lower. Midsternal dressing CDI, no swelling/bleeding noted. Substernal dressing CDI, no swelling bleeding noted. R leg incision sites x4, dressing CDI with no drainage noted. All pulses weakly palpable with cap refill < 3 sec, skin warm/dry to touch with extremities cool. Patient denies pain or other needs at this time, all VSS and will continue to monitor.
--- NOTE | 2017-03-26 05:15 | NUR ---
Patient off unit to radiology for PA/Lat, no difficulties. Patient returned to unit sitting up in chair, bed bath/linen change performed. TPM A/V sensing, settings unchanged. Midsternal/Substernal Dressing CDI, TPM wires secured/intact. No further needs at this time, all VSS and will continue to monitor.
[2017-03-26 06:08] LABS: HEMATOCRIT 26.5 % (42.0-54.0); HEMOGLOBIN 8.4 g/dL (13.5-17.5); MCH 29.9 pg (26.0-34.0); MCHC 31.7 g/dL (31.0-37.0); MCV 94.3 fL (80.0-100.0); MEAN PLATELET VOLUME 11.7 fL (7.4-10.4); RBC 2.81 10x6/uL (4.20-6.10); RDW 14.9 % (11.5-14.5); WBC 10.1 10x3/uL (4.8-10.8)
[2017-03-26 06:25] LABS: ALBUMIN 2.3 g/dL (3.4-5.0); ALKALINE PHOSPHATASE 145 U/L (46-116); ALT (SGPT) 330 U/L (10-68); BILIRUBIN - TOTAL 0.72 mg/dL (0.2-1.3); CALC OSMOLALITY 285 mosm/kg (275-300); CALCIUM 7.9 mg/dL (8.5-10.1); CARBON DIOXIDE 31.7 mmol/L (21.0-32.0); CHLORIDE - SERUM 102 mmol/L (98-107); CREATININE - SERUM 0.9 mg/dL (0.6-1.3); GLUCOSE 181 mg/dL (74-106); POTASSIUM - SERUM 4.1 mmol/L (3.5-5.1); PROTEIN - SERUM 6.2 g/dL (6.4-8.2); SODIUM 137 mmol/L (136-145); UREA NITROGEN 32 mg/dL (7-18); eGFR NON AFRICAN AMERICAN > 90 mL/min (90-120)
--- NOTE | 2017-03-26 06:47 | NUR ---
ORAL CARE DONE WITH PERIDEX
--- NOTE | 2017-03-26 07:00 | NUR ---
PT REPORT REC'D, PT CARE ASSUMED. PT [id number] SITTING UP IN WHEELCHAIR. TRANSFERRED PT FROM WHEEL CHAIR TO RECLINER, PT TOLERATED WELL. VSS, 2LNC. LEFT SUBLCAVIAN CVL, S/L'ED, DRESSING CDI. MIDSTERNAL INCISION, DRESSING CDI. SUBSTERNAL DRESSING, TPM WIRES SECURED TO CHEST, DRESSING CDI. RIGHT LEG HARVEST SITES, DRESSINGS CDI. PT REFUSING MEKA'S AND SCD'S, "IT'S TOO HOT" TURNED PT'S FAN ON PER REQUEST, WILL TRY MEKA'S AND SCD'S IN A BIT. SHIFT ASSESSMENT COMPLETED, SEE FLOW SHEET. ROOM FREE OF CLUTTER, CHAIR LOCKED IN POSITION, PT VERBALZED AND DEMONSTRATES USE OF CALL LIGHT. WILL CONTINUE TO MONITOR PT.
--- NOTE | 2017-03-26 08:00 | NUR ---
PT AT THE BEDSIDE, ALL QUESTIONS ANSWERED, WILL CONTINUE TO MONITOR PT.
--- NOTE | 2017-03-26 08:59 | NUR ---
PHYSICAL THERAPY WITH PT, PT AMBULATED APPROX 130FT, TOLERATED WELL. WILL CONTINUE TO MONITOR PT
--- NOTE | 2017-03-26 09:15 | NUR ---
PT AT THE BEDSIDE, ALL QUESTIONS ANSWERED, VSS, WILL CONTINUE TO MONITOR PT.
--- NOTE | 2017-03-26 09:52 | NUR ---
CHANGED SUBSTERNAL TPM WIRE DRESSING. CHANGED RIGHT LEG HARVEST SITES DRESSINGS. PT TOLERATED WELL. WILL CONTINUE TO MONITOR PT.
--- NOTE | 2017-03-26 09:52 | NUR ---
CHANGED SUBSTERNAL TPM WIRE DRESSING OREDERED. CHANGED RIGHT LEG HARVEST SITE DRESSINGS ORDERED. PT TOLERATED WELL, MEKA'S APPLIED, CALL LIGHT IN REACH, WILL CONTINUE TO MONITOR PT.
--- NOTE | 2017-03-26 10:52 | NUR ---
Nutrition Follow Up: Pt was asleep at the time of RD visit. Interview deferred. Pt is on a diabetic diet. No po intake recorded. Wt gain noted. No BM since admit. Labs and meds reviewed. Rec continue current diet. RD following.
--- NOTE | 2017-03-26 11:00 | NUR ---
PT SITTING UP IN CHAIR, DENIES ANY PAIN. REASSESSMENT COMPLETED, SEE FLOW SHEET. ROOM FREE OF CLUTTER, CALL LIGHT IN REACH, PT VERBALIZES AND DEMONSTRATES USE OF CALL LIGHT, WILL CONTINUE TO MONITOR PT.
--- NOTE | 2017-03-26 12:03 | NUR ---
PT AT THE BEDSIDE, ALL QUESTIONS ANSWERED, VSS, WILL CONTINUE TO MONITOR PT.
--- NOTE | 2017-03-26 14:00 | NUR ---
RECEIVED PT FROM SARAH PARSON RN.
--- NOTE | 2017-03-26 16:30 | NUR ---
PT UP TO CHAIR WITH ASSIT. CALL LIGHT WITHIN REACH. SET UP WITH RE GOODE.
--- NOTE | 2017-03-26 17:45 | NUR ---
PT SITTING UP IN CHAIR. WANTING TO GO BACK TO BED. ENCOURAGED PT TO SIT UP FOR A LITTLE WHILE LONGER. HE VOICED UNDERSTANDING. CALL LIGHT WITHIN REACH.
--- NOTE | 2017-03-26 19:10 | NUR ---
[facility] completed per flowsheet. Patient AO x4, calm and cooperative. Eyes PERRLA @ 4mm with brisk response, sclera is white. S1/S2 noted NSR with pacer spikes on telemetry with HR 79. TPM with A/V sensing in use, settings DDD R-80 A-10 V-10 S-2.00. Breathing is slightly shallow and unlabored on 2L via NC with O2 sat 96%, lung sounds clear bilateral upper and mid with diminished lower. Midsternal incision dressing CDI, no swelling/bleeding noted. Substernal insertion site wires secured/intact, dressing CDI with no drainage noted. Patient utilizes urinal jug, 350ml concentrated yellow urine collected. Full ROM all extremities with all pules palpable, cap refill < 3 sec. R leg harvest site incision x4 dressing CDI, no bleeding/drainage noted. Patient denies pain or other needs at this time, all VSS and will continue to monitor.
--- NOTE | 2017-03-26 19:22 | NUR ---
ORAL CARE PERFORMED WITH PERIDEX ORDERED
--- NOTE | 2017-03-26 21:00 | NUR ---
Patient family at bedside, no questions at this time. All HS meds given without difficulty, patient repositioned for comfort. Patient denies pain or other needs at this time, all VSS and will continue to monitor.
--- NOTE | 2017-03-26 23:05 | NUR ---
Reassessment completed per flowsheet, patient resting in bed on BiPAP. patient AO x4, calm and follows commands. S1/S2 noted with pacer spikes on telemetry with HR 80, regular. Breathing is slightly shallow on BiPAP @ 30% with O2 sat 98%, lung sounds clear bilateral upper and mid with diminished lower. Midsternal incision dressing CDI, no swelling/bleeding noted. Substernal incision dressing CDI, wires secured/intact. R leg harvest sites x4 dressing CDI, no bleeding drainage noted. Repositioned for comfort, no further needs at this time. All VSS and will continue to monitor.
[2017-03-27] VITALS (24 sets, daily range): BP systolic 97–144; BP diastolic 47–83
--- NOTE | 2017-03-27 01:00 | NUR ---
Patient BiPAP replaced, patient "doesn't like to wear it" and "wants it off". Explained to patient that it was Dr Lara's orders to wear, patient compliant at the moment. TPM in use A/V sensing, settings unchanged from previous. Wires secured and intact, substernal dressing CDI. No further needs at this time, all VSS and will continue to monitor.
--- NOTE | 2017-03-27 03:00 | NUR ---
Reassessment completed per flowsheet, patient resting in bed with eyes closed. Patient AO x4, calm and follows directions. S1/S2 with pacer spikes noted on telemetry with HR 80, rhythmic and regular. TPM in use A/V sensing, settings unchanged from previous assessment. Breathing is slightly shallow and unlabored on BiPAP @ 30% with O2 sat 97%, lung sounds clear bilateral upper and mid with diminished lower. Midsternal dressing CDI, no swelling/bleeding noted. Substernal dressing CDI, TPM wires secured/intact. Full ROM all extremities with all pulses palpable, cap refill < 3 sec. Denies pain or other needs at this time, all VSS and will continue to monitor.
--- NOTE | 2017-03-27 05:00 | NUR ---
Patient resting in bed with eyes closed, breathing is shallow and unlabored on BiPAP @ 30% with O2 sat 96%. Substernal and R leg dressing changed, no difficulties with incision well approximated. Patient repositioned for comfort, denies pain or other needs at this time. All VSS and will continue to monitor.
[2017-03-27 06:03] LABS: HEMATOCRIT 25.5 % (42.0-54.0); HEMOGLOBIN 8.3 g/dL (13.5-17.5); MCH 30.6 pg (26.0-34.0); MCHC 32.5 g/dL (31.0-37.0); MCV 94.1 fL (80.0-100.0); MEAN PLATELET VOLUME 11.1 fL (7.4-10.4); RBC 2.71 10x6/uL (4.20-6.10); WBC 8.9 10x3/uL (4.8-10.8)
[2017-03-27 06:19] LABS: ALBUMIN 2.1 g/dL (3.4-5.0); ALKALINE PHOSPHATASE 131 U/L (46-116); ALT (SGPT) 275 U/L (10-68); BILIRUBIN - TOTAL 0.57 mg/dL (0.2-1.3); CALC OSMOLALITY 283 mosm/kg (275-300); CALCIUM 7.5 mg/dL (8.5-10.1); CARBON DIOXIDE 32.6 mmol/L (21.0-32.0); CHLORIDE - SERUM 100 mmol/L (98-107); CREATININE - SERUM 0.8 mg/dL (0.6-1.3); GLUCOSE 159 mg/dL (74-106); POTASSIUM - SERUM 3.8 mmol/L (3.5-5.1); SODIUM 138 mmol/L (136-145); UREA NITROGEN 26 mg/dL (7-18); eGFR NON AFRICAN AMERICAN > 90 mL/min (90-120)
--- NOTE | 2017-03-27 07:20 | NUR ---
ORAL CARE DONE WITH PERIDEX
--- NOTE | 2017-03-27 07:30 | NUR ---
RECEIVED PT FOR CARE. PT SITTING UP IN CHAIR. CALL LIGHT WITHIN REACH. VSS AT THIS TIME. ENCOURAGED TO DEEP BREATHE/COUGH.
--- NOTE | 2017-03-27 09:15 | NUR ---
PT'S AT BEDSIDE. UPDATED ON PT'S STATUS.
--- NOTE | 2017-03-27 11:15 | NUR ---
PT SITTING UP IN CHAIR. CALL LIGHT WITHIN REACH.
--- NOTE | 2017-03-27 13:11 | NUR ---
PT AMBULATED WITH PHYSICAL THERAPY. ASSITED TO BED. CALL LIGHT WITHIN REACH.
--- NOTE | 2017-03-27 15:20 | NUR ---
DR. CHAN AT BEDSIDE. TPP CHANGED TO VVI 50 VMA 10. SENSITIVITY IS 0.8. PT IN SINUS RHYTHM RATE 71
--- NOTE | 2017-03-27 16:10 | NUR ---
PT UP TO RESTROOM WITH ASSIST. VOIDED WITHOUT DIFFICULTY. PT AMBULATED BACK TO CHAIR. CALL LIGHT WITHIN REACH.
--- NOTE | 2017-03-27 17:47 | NUR ---
PT ASSISTED BACK TO BED. CALL LIGHT WITHIN REACH.
--- NOTE | 2017-03-27 18:58 | NUR ---
ORAL CARE PROVIDED WITH PERIDEX AFTER UPDRAFT TREATMENT
--- NOTE | 2017-03-27 19:30 | NUR ---
REC'D TO CARE, SLOT AMBASSADOR PER FLOWSHEET. PT AWAKE AND ORIENTED TO SITUATION. VSS. NO SIGN OF DISTRESS. CM - SR. TPM VVI 50, SENSING WITH OCC PACED BEAT NOTED. LUNGS CTA. SKIN ASSESSMENT WITH INCISIONS NOTED PER FLOWSHEET. L DLSC, DSG C/D/I, SL'D. PT OBESE, ENCOURAGED TO PERFORM ADLS INDEPENDENTLY HE CAN, VERBALIZED IMPORTANCE OF DB&C AND I.S. ALARMS ON AND C/L IN REACH.
--- NOTE | 2017-03-27 20:34 | NUR ---
up in chair. admin po meds per md orders and prn norco. fsbs 242 - coverage per ssi. sandwich tray served per pt request.. alarms on and c/l in reach.
--- NOTE | 2017-03-27 21:22 | NUR ---
DR. CHAN NOTIFIED OF TPM SPIKES IRREG - NEW ORDER TO TURN OFF PACEMAKER. ALARMS ADJUSTED AND VERIFIED. PT UP IN CHAIR. REPORTS ADEQUATE PAIN RELIEF. C/L IN REACH.
--- NOTE | 2017-03-27 22:10 | NUR ---
REMAINS UP IN CHAIR. ON BIPAP 30%, RESTING QUIETLY. ALARMS ON AND C/L IN REACH.
--- NOTE | 2017-03-27 23:10 | NUR ---
REASSESSMENT PER FLOWSHEET, NO ACUTE CHANGES. REMAINS UP IN CHAIR. BREAK FROM BIPAP, GIVEN FRESH WATER. CM - SR 72. ALARMS ON AND C/L IN REACH.
[2017-03-28] VITALS (16 sets, daily range): BP systolic 114–153; BP diastolic 43–86
--- NOTE | 2017-03-28 01:00 | NUR ---
BACK IN BED, LYING R SIDE, VSS.
--- NOTE | 2017-03-28 02:15 | NUR ---
UP IN CHAIR. O2 2L NC. GIVEN APPLESAUCE PER REQUEST. ALARMS ON AND C/L IN REACH.
--- NOTE | 2017-03-28 04:10 | NUR ---
TO RAD VIA W/C. GAIT MORE STEADY. NO COMPLICATIONS. 0425 - BACK TO ROOM AND BACK TO BED. REPOSITIONED UP IN BED. VSS. ALARMS ON AND C/L IN REACH.
--- NOTE | 2017-03-28 05:45 | NUR ---
UP TO CHAIR WITH MINIMAL ASSIST REQUIRED. ALARMS ON AND C/L IN REACH.
[2017-03-28 06:36] LABS: HEMATOCRIT 26.4 % (42.0-54.0); HEMOGLOBIN 8.3 g/dL (13.5-17.5); MCH 29.7 pg (26.0-34.0); MCHC 31.4 g/dL (31.0-37.0); MCV 94.6 fL (80.0-100.0); MEAN PLATELET VOLUME 10.6 fL (7.4-10.4); RBC 2.79 10x6/uL (4.20-6.10); WBC 10.8 10x3/uL (4.8-10.8)
--- NOTE | 2017-03-28 07:00 | NUR ---
ASSESSMENT COMPLETE PER FLOWSHEET. VOICES NO CO AT TIME. UP IN CHAIR VOICES NO CO AT TIME.
[2017-03-28 07:08] LABS: ALBUMIN 2.3 g/dL (3.4-5.0); ALKALINE PHOSPHATASE 135 U/L (46-116); ALT (SGPT) 224 U/L (10-68); CALC OSMOLALITY 281 mosm/kg (275-300); CALCIUM 7.9 mg/dL (8.5-10.1); CARBON DIOXIDE 32.7 mmol/L (21.0-32.0); CHLORIDE - SERUM 100 mmol/L (98-107); CREATININE - SERUM 0.8 mg/dL (0.6-1.3); GLUCOSE 170 mg/dL (74-106); POTASSIUM - SERUM 3.9 mmol/L (3.5-5.1); PROTEIN - SERUM 6.4 g/dL (6.4-8.2); SODIUM 137 mmol/L (136-145); UREA NITROGEN 23 mg/dL (7-18); eGFR NON AFRICAN AMERICAN > 90 mL/min (90-120)
--- NOTE | 2017-03-28 07:37 | NUR ---
ORAL CARE DONE POST TX
--- NOTE | 2017-03-28 10:00 | NUR ---
UP IN CHAIR. VOICES NO CO AT TIME.
--- NOTE | 2017-03-28 16:30 | NUR ---
PT SITTING ON SIDE OF BED NOTE FAMILY HAS BROUGHT IN [employer]. PT TEACHING DONE ON AHA/ADA DIET. PT VERBALIZED HE UNDERSTOOD BUT WANTED [employer] ANYWAY. MEDS GIVEN AFTER TEACHING DONE. PT VERBALIZED COMPREHENSION
--- NOTE | 2017-03-28 19:00 | NUR ---
ASSESSMENT COMPLETE PER FLOWSHEET. VOICES NO CO AT TIME. SR UP X 3.
--- NOTE | 2017-03-28 21:00 | NUR ---
SLEEPING NO DISTRESS NOTED. SR UP X 2.
[2017-03-29] VITALS (18 sets, daily range): BP systolic 94–149; BP diastolic 40–78
--- NOTE | 2017-03-29 00:03 | NUR ---
SLEEPING NO DISTRESS NOTED. SR UP X 2.
--- NOTE | 2017-03-29 03:30 | NUR ---
UP IN CHAIR FOR PA AND LAT. VOICES NO CO AT TIME.
--- NOTE | 2017-03-29 06:00 | NUR ---
SLEEPING NO DISTRESS NOTED. SR UP X 2. CALL LIGHT WITHIN REACH.
--- NOTE | 2017-03-29 07:47 | NUR ---
PATIENT SHIFT ASSESSMENT COMPLETE. PATIENT DECLINES TO GET UP TO CHIAR FOR BREAKFAST, BUT AGREES TO THE SIDE OF BED. PATIENT UP TO SIDE OF BED WITH MINIMAL ASSIST.
--- NOTE | 2017-03-29 08:55 | NUR ---
LAB IN ROOM FOR BLOOD DRAW. ATTEMPTED DRAW FROM CENTRAL LINE WITHOUT SUCCESS FROM EITHER PORT. DISTAL PORT WILL NOT FLUSH, PROXIMAL PORT FLUSHED EASILY.
--- NOTE | 2017-03-29 08:58 | NUR ---
AT BEDSIDE. PATIENT ATE APPROX 5% OF BREAKFAST. UPON ENTERING ROOM WAS GIVING PATIENT A BREAKFAST BURRITO FROM [employer], EXPLAINED TO PATIENT AND THAT HE WAS ON A CARDIAC DIET.
[2017-03-29 09:05] LABS: CALC OSMOLALITY 280 mosm/kg (275-300); CALCIUM 7.7 mg/dL (8.5-10.1); CARBON DIOXIDE 34.1 mmol/L (21.0-32.0); CHLORIDE - SERUM 100 mmol/L (98-107); CREATININE - SERUM 0.9 mg/dL (0.6-1.3); GLUCOSE 191 mg/dL (74-106); HEMATOCRIT 26.6 % (42.0-54.0); HEMOGLOBIN 8.3 g/dL (13.5-17.5); MCHC 31.2 g/dL (31.0-37.0); MEAN PLATELET VOLUME 10.6 fL (7.4-10.4); POTASSIUM - SERUM 3.9 mmol/L (3.5-5.1); RBC 2.77 10x6/uL (4.20-6.10); RDW 15.4 % (11.5-14.5); SODIUM 137 mmol/L (136-145); UREA NITROGEN 18 mg/dL (7-18); WBC 9.1 10x3/uL (4.8-10.8); eGFR NON AFRICAN AMERICAN > 90 mL/min (90-120)
--- NOTE | 2017-03-29 09:18 | NUR ---
DR. CHAN IN TO SEE PATIENT, NEW ORDERS RECEIVED.
--- NOTE | 2017-03-29 10:54 | NUR ---
REHAB PRESCREENING Rehab referral appreciated on this patient. [facility] Rehab can not accept [facility] as a payer source. Thank you for this referral! Melissa Arevalo, VALUE ADVISOR Rehab Hat Body Inspector
--- NOTE | 2017-03-29 11:01 | NUR ---
Nutrition Follow Up: Pt was asleep at the time of RD visit. Interview deferred. Pt is eating 54% meal avg on an ADA/AHA diet. Wt stable. +BM 03/27/17. Meds and labs reviewed. Rec continue current diet. Will continue to provide selective menus and honor food preferences. RD following.
--- NOTE | 2017-03-29 14:18 | NUR ---
PATIENT'S BATHED HIM PER HER REQUEST. PATIENT IS BACK IN BED WITH HOB ELEVATED. O2 OFF ON FORHEAD, INFORMED PATIENT THAT HE NEEDED TO WEAR O2 DUE TO HIS SPO2 DECREASING.
--- NOTE | 2017-03-29 14:40 | NUR ---
MIDSTERNAL DRESSING IS COMING OFF AROUND TOP EDGE DOWN TO MIDDLE OF INCISION. CHECKED WITH NARCISA LAUREANO, INSTRUCTED TO REMOVE DRESSING, APPLY BETADINE, AND LEAVE INCISION OPEN TO AIR. DRESSING REMOVED AND BETADINE APPLIED.
--- NOTE | 2017-03-29 15:04 | NUR ---
Patient Name: LANNY DONG Encounter No: [id number] : 1965 Primary Insurance: [employer] Anticipated DC Date: 03-28-2017 Planned Disposition: Home External Planned Provider: [facility] in [facility] follow-up note: CM met with patient and spouse regarding rehab & home health options. Patient is ambulating 500' with physical therapy and is not a candidate for inpatient rehab. They are agreeable to home health for physical therapy. SEBASTIEN signed for [facility] in [place]. Initial referral faxed. Patient's O2 sat dropped to 86% on room air after ambulating 500'. He would prefer not to go home with O2 if possible. Explained we can obtain another O2 Sat in the morning and see if it has improved. If he does require O2, we can arrange it at that time. Voice message left for Dr. Medrano's nurse to return call regarding home health & home O2 orders - waiting on return call. Anticipate dc tomorrow afternoon. Case management will follow and assist as needed. Ethel Cruz
--- NOTE | 2017-03-29 16:41 | NUR ---
PATIENT UP TO BATHROOM TO HAVE BOWEL MOVEMENT, WAS UNSUCCESSFUL AT THIS TIME. PATIENT BACK TO CHAIR. CALL LIGHT WITHIN REACH AT THIS TIME, AT BEDSIDE.
--- NOTE | 2017-03-29 19:00 | NUR ---
PT IS POST OP CABG BY DR CHAN. CHEST TUBES LINES AND TPM HAVE BEEN PULLED AT THIS POINT. ASSESSMENT COMPLETED. SEE FLOWSHEE TFOR FULL DETAILS. AT THIS TIME [facility] IS FACILITY SALES AND ADMIN, ARE THE RIGHT LEG HARVEST SITES. SUBSTERNAL DRESSING CDI. PT SET FOR EVAL TO DETERMINE POSSIBILITY OF XFER TO REHAB. VSS. WILL MONITOR THROUGHOUT SHIFT.
--- NOTE | 2017-03-29 21:00 | NUR ---
ASSISTED PT TO RESTROOM. NO BM AT THIS TIME. WILL CONTINUE TO MONITOR. 2100 MEDS GIVEN.
--- NOTE | 2017-03-29 23:00 | NUR ---
PT REFUSING TO WEAR BIPAP AT THIS TIME. WILL DISCUSS WITH RT. NO OTHER CHANGES AT THIS TIME. REASSESSMENT COMPLETED. SEE FLOWSHEET FOR FULL DETAILS
--- NOTE | 2017-03-29 23:34 | NUR ---
PT REFUSES BIPAP. ONLY TOLERATED 43 MINUTES LAST NIGHT. SAYS HE CANNOT STAND IT. ADAMANTLY REFUSES TONIGHT. ADVISES HE WILL SPEAK TO DR CHAN ABOUT IT. I HAVE EXPLAINED THE NECESSITY OF IT BUT PT STATES HE JUST CANNOT TOLERATE IT.
[2017-03-30] VITALS (8 sets, daily range): BP systolic 117–139; BP diastolic 62–85
--- NOTE | 2017-03-30 01:00 | NUR ---
NO CHANGES IN STATUS AT THIS TIME. ASSISTED PT TO RESTROOM AGAIN. STILL NO BM. PT NOW UP IN CHAIR. INSTRUCTED TO USE CALL LIGHT WHEN READY TO MOVE BACK TO BED, OR IF HE HAS ANY NEEDS. WILL MONITOR
--- NOTE | 2017-03-30 02:46 | NUR ---
PT C/O R SHOULDER "SORENESS". ADMIN PRN RAVIN. FRESH WATER AT BS.
--- NOTE | 2017-03-30 05:00 | NUR ---
ACCOMPANIED PT TO RADIOLOGY FOR PA AND LAT. NO OTHER CHANGES IN STATUS AT THIS TIME. WILL CONTINUE TO MONITOR
--- NOTE | 2017-03-30 07:00 | NUR ---
ASSESSMENT COMPLETE PER FLOWSHEET. NO CO AT TIME.
[2017-03-30] MEDS ORDERED: HEMOCYTE PLUS C1 CAP PO (09:56)
[2017-03-30] MEDS ORDERED: CORDARONE200 MG PO (09:56)
[2017-03-30] MEDS ORDERED: ASPIRIN81 MG PO (09:57)
[2017-03-30] MEDS ORDERED: HYDROCODONE-APA1 TAB PO (09:59)
--- NOTE | 2017-03-30 10:00 | NUR ---
UP WITH PT TO WALK, WALKED 500 FT.
--- NOTE | 2017-03-30 10:54 | NUR ---
CM RECEIVED A CALL FROM [facility] ABOUT PATIENT NEED HOME O2, SITTING POX WAS 86% ON ROOM AIR. PATIENT REQUIRING 2L WITH O2 SAT @ 95%. CM SPOKE WITH DR CHAN'S NURSE SRIDEVI AND THEY STATED THAT WE NEEDED TO GET THE ORDER FROM PATIENT'S PCP WHICH WAS IVONNE CERDA IN [place]. RAY WITH PATT. SPOKE WITH DR CERDA NURSE AND THEY WILL SIGN PAPER. RAY WILL SET PATIENT UP WITH PORTABLE O2 AT 2L. PATIENT WITH A 2 VIEW XRAY SHOWS PERSISTENT BIBASILAR AIRSPACE DX WITH SMALL PLEURAL EFFUSIONS. FINDING SUGGEST ATELECTASIS.
--- NOTE | 2017-03-30 13:00 | NUR ---
SRIDEVI HERE GIVEN DC INSTRUCTION.
--- NOTE | 2017-03-30 13:31 | NUR ---
MEHDI REASSESSMENT NOTE: OXYGEN HAS BEEN SET UP FOR PATIENT. [facility] WILL DELIVER O2 TO PATIENTS ROOM IN [facility]. MEHDI SPOKE WITH NURSE AND SHE STATED SHE DID NOT HAVE A DISCHARGE FOR TODAY. FABRICE HARDING HAS SENT CLINICALS TO [facility] IN [place]. WHEN PATIENT DISCHARGES THE D/C INSTRUCTIONS AND MEDS WILL NEED TO BE FAXED TO [facility]. [facility] IN [place]- FAX [phone] PHONE [phone]] PATT (OXYGEN) [phone]
--- NOTE | 2017-03-30 13:55 | NUR ---
WIRES DCD. DSC DCD. VOICES NO QUESTION. MUST STAY DOWN FOR 30MINUTES.
--- NOTE | 2017-03-30 14:27 | NUR ---
DISCHARGE TO HOME. VOICES NO QUESTIONS ABOUT DISCHARGE. LEFT VIA PRIVATE AUTO.
--- NOTE | 2017-03-30 14:35 | NUR ---
CM REASSESSMENT NOTE: PATIENT D/C TODAY HOME WITH [facility] IN [place]. OXYGEN WAS DELIVERED TO ROOM BY [facility]. PATIENT HAD NO OTHER NEEDS FOR DISCHARGE. FAMILY DRIVING
--- NOTE | 2017-04-15 12:06 | DS ---
PATIENT:LANNY POST :[birth year] MEDICAL RECORD: [id number] DISCHARGE SUMMARY ADMISSION DATE: 03/21/17 DISCHARGE DATE: 03/30/17 DISCHARGE DIAGNOSES: 1. Atherosclerotic heart disease with angina pectoris. 2. Critical illness myopathy. 3. Body mass index 45-49. 4. Type 2 diabetes mellitus. 5. Hyperlipidemia. 6. Paroxysmal atrial fibrillation. DISCHARGE MEDICATIONS: Please see medical reconciliation form. DISPOSITION: The patient is discharged home with home health. HOSPITAL COURSE: Mr. Post was admitted to the hospital. He underwent aortocoronary artery bypass. Postoperatively, he did well hemodynamically, however, he was slow to progress due to his comorbid conditions. He was gradually weaned from supplemental oxygen. He began to ambulate and take in a diet. He was placed on drugs for paroxysmal atrial fibrillation and had good suppression. At the time of discharge, his incisions are healing well. He has been given discharge instructions and wound precautions and will be seen as above. TRANSINT:[id number] Voice Confirmation ID: [id number] DOCUMENT ID: [id number] CHANA CHAN MD at 1206 CC: [id number] DICTATION DATE: 04/07/17 1330 CHALK MACHINE OPERATOR: 04/07/17 1534 DIS IN 03/30/17 [facility] [address] [place] [address]
== END 2017-03-30 14:30 | disposition home health service (06) | DRG 236 ==
LOC: D.CVICU 05:11 → D.SDCHOLD 05:11 → D.CVICU 14:07
PROVIDERS: ADMIT Internal Medicine Cardiovascular Disease
PROC: 021209W Bypass Coronary Artery, Three Arteries from Aorta with Autologous Venous Tissue, Open Approach (ICD-10-PCS; 2017-03-21)
PROC: 06BP0ZZ Excision of Right Saphenous Vein, Open Approach (ICD-10-PCS; 2017-03-21)
PROC: 5A1221Z Performance of Cardiac Output, Continuous (ICD-10-PCS; 2017-03-21)
PROC: B245ZZ4 Ultrasonography of Left Heart, Transesophageal (ICD-10-PCS; 2017-03-21)
PROC: 02100AC Bypass Coronary Artery, One Artery from Thoracic Artery with Autologous Arterial Tissue, Open Approach (ICD-10-PCS; principal; 2017-03-21 07:30)
DX: I25.119 Atherosclerotic heart disease of native coronary artery with unspecified angina pectoris (principal); Z68.42 Body mass index [BMI] 45.0-49.9, adult; G72.81 Critical illness myopathy; E11.9 Type 2 diabetes mellitus without complications; E78.5 Hyperlipidemia, unspecified; I48.0 Paroxysmal atrial fibrillation; E66.9 Obesity, unspecified

== ENCOUNTER → 2017-04-12 13:22 | Outpatient (CLI) | payer MEDICARE ==
[2017-03-22 11:14] VITALS: BMI 48.0
[~2017-04-12 13:22] MED LIST changes: +ASPIRIN81 MG PO; +CORDARONE200 MG PO; +HEMOCYTE PLUS C1 CAP PO; +HYDROCODONE-APA1 TAB PO
[2017-04-12 13:56] LABS: HEMATOCRIT 32.6 % (42.0-54.0); HEMOGLOBIN 10.2 g/dL (13.5-17.5); MCH 28.4 pg (26.0-34.0); MCHC 31.3 g/dL (31.0-37.0); MCV 90.8 fL (80.0-100.0); MEAN PLATELET VOLUME 9.5 fL (7.4-10.4); RBC 3.59 10x6/uL (4.20-6.10); RDW 14.8 % (11.5-14.5); WBC 7.2 10x3/uL (4.8-10.8)
[2017-04-12 14:07] LABS: CALC OSMOLALITY 286 mosm/kg (275-300); CALCIUM 8.8 mg/dL (8.5-10.1); CHLORIDE - SERUM 104 mmol/L (98-107); CREATININE - SERUM 0.9 mg/dL (0.6-1.3); GLUCOSE 145 mg/dL (74-106); SODIUM 141 mmol/L (136-145); UREA NITROGEN 20 mg/dL (7-18); eGFR NON AFRICAN AMERICAN > 90 mL/min (90-120)
== END | disposition home or self-care (01) ==
LOC: D.RAD 08:00
PROVIDERS: Internal Medicine Cardiovascular Disease
DX: D64.9 Anemia, unspecified (principal); J90 Pleural effusion, not elsewhere classified

== ENCOUNTER 2017-08-08 09:17 | Inpatient (IN) | payer BC ==
[~2017-08-08] VITALS: Ht 172.7 cm; Wt 139.5 kg
--- NOTE | ~2017-08-08 | EC ---
PATIENT:LANNY DONG DATE OF SERVICE: 08/08/17 SEX: M MEDICAL RECORD: [id number] DATE OF : [birth year] LOCATION:D.M2 D.212 AGE OF PATIENT: 52 ADMISSION DATE: 08/08/17 REFERRING PHYSICIAN: INTERPRETING PHYSICIAN: ATTILA LUCIO MD ECHOCARDIOGRAM REPORT ECHO CHARGES 4 ECHO COMPLETE CLINICAL DIAGNOSIS: CP ECHOCARDIOGRAPHIC MEASUREMENTS (adult normal given) AC root (d.<3.7cm) 3.3 cm LV Septum d (<1.2 cm> 1.8 cm Valve Excursion 1.8 cm LV Septum (systole) 2.5 cm Left Atria (s.<4.0cm> 3.6 cm LVPW d(<1.2cm) 1.8 cm RV (d.<2.3cm) 2.4 cm LVPW (sytole) 2.4 cm LV diastole(<5.6CM) 6.0 cm MV E-F(>70mm/sec) cm LV systole 3.8 cm LVOT Diameter 1.8 cm MV exc.(>10mm) cm Est.ejection fraction (50-75%) % Pericardial Effusion N DOPPLER: LVIT cm/sec A 40.0 cm/sec E 97.0 cm/sec LA cm/sec RVSP 23.0 mmHg LVOT 76.0 cm/sec AOP1/2T m/s Asc. Ao 113 cm/sec RVOT 57.0 cm/sec RA cm/sec PA 89.0 cm/sec AV Gradient Peak 5.1 mmHg AV Mean 3.2 mmHg AV Area 1.5 cm MV Gradient Peak 6.4 mmHg MV Mean 1.7 mmHg MV Area cm COMMENTS: Schedule Manager: Raza ROMANOE Cinder Pit Worker: 4 Dr. Lucio TAPE# PACS DATE OF SERVICE: 08/08/2017 PROCEDURE: Transthoracic echocardiogram. FINDINGS: 1. The left ventricle is shown to have moderate left ventricular hypertrophy. Inflow characteristics appear to be normal. The overall ejection fraction is mildly reduced, ejection fraction of 40% to 45%. Endocardium was not well visualized and it may underestimate the overall function. 2. The right ventricle appears to be mildly dilated with right ventricular ECHOCARDIOGRAM REPORT [id number] LANNY DONG hypertrophy. 3. The left atrium is upper limits of normal to mildly dilated. 4. The right atrium is moderately dilated. 5. Aortic valve is not well visualized, but grossly normal. 6. The mitral valve has trace mitral regurgitation and appears to be structurally normal. 7. The tricuspid valve has trace tricuspid regurgitation. The RVSP is normal. 8. The pericardium is normal. CONCLUSIONS: The patient has evidence of hypertensive heart disease. There is mild reduction in systolic function with global hypokinesis. TRANSINT:[id number] Voice Confirmation ID: [id number] DOCUMENT ID: [id number] 08/14/2017 Edited to correct date of service, dm. ATTILA LUCIO MD at 1001 CC: [id number] DICTATION DATE: 08/09/17 0729 FOOD RUNNER: 08/09/17 0940 DIS IN 08/09/17 [facility] [id number] [place] [address]
[2017-08-08 10:42] LABS: BASOPHILS 0.2 % (0-2); EOSINOPHILS 3.3 % (0-7); HEMATOCRIT 36.9 % (42.0-54.0); HEMOGLOBIN 11.2 g/dL (13.5-17.5); IMMATURE GRANULOCYTES 0.2 % (0-5); LYMPHOCYTES 19.9 % (15-50); MCH 26.6 pg (26.0-34.0); MCHC 30.4 g/dL (31.0-37.0); MCV 87.6 fL (80.0-100.0); MEAN PLATELET VOLUME 10.7 fL (7.4-10.4); MONOCYTES 6.5 % (2-11); NEUTROPHILS 69.9 % (40-80); PLATELET COUNT 194 10x3/uL (130-400); RBC 4.21 10x6/uL (4.20-6.10); RDW 17.8 % (11.5-14.5); WBC 8.9 10x3/uL (4.8-10.8)
[2017-08-08 10:48] LABS: APPEARANCE CLEAR (CLEAR); BILIRUBIN NEGATIVE (NEGATIVE); COLOR YELLOW (YELLOW); GLUCOSE NEGATIVE (NEGATIVE); KETONE NEGATIVE (NEGATIVE); NITRITE NEGATIVE (NEGATIVE); PROTEIN NEGATIVE (NEGATIVE); UROBILINOGEN NORMAL (NORMAL)
[2017-08-08 10:52] LABS: ALBUMIN 3.6 g/dL (3.4-5.0); ALKALINE PHOSPHATASE 120 U/L (46-116); ALT (SGPT) 31 U/L (10-68); BILIRUBIN - TOTAL 1.08 mg/dL (0.2-1.3); CALC OSMOLALITY 290 mosm/kg (275-300); CALCIUM 8.8 mg/dL (8.5-10.1); CARBON DIOXIDE 28.2 mmol/L (21.0-32.0); CHLORIDE - SERUM 104 mmol/L (98-107); GLUCOSE 150 mg/dL (74-106); POTASSIUM - SERUM 4.1 mmol/L (3.5-5.1); SODIUM 142 mmol/L (136-145); UREA NITROGEN 26 mg/dL (7-18); eGFR NON AFRICAN AMERICAN 84 mL/min (90-120)
[2017-08-08 11:00] LABS: AMYLASE - SERUM 59 U/L (25-115); LIPASE 413 U/L (73-393); PRO BNP 1427 pg/mL (0-125)
[2017-08-08 11:02] LABS: TROPONIN-I < 0.017 ng/mL (0.000-0.060)
[2017-08-08 13:52] LABS: CKMB 2.5 U/L (0.0-3.6); CREATINE KINASE 91 UL (21-232); TROPONIN-I < 0.017 ng/mL (0.000-0.060)
[2017-08-08 18:53] LABS: CKMB 2.2 U/L (0.0-3.6); CREATINE KINASE 85 UL (21-232)
[2017-08-08 19:11] LABS: TROPONIN-I < 0.017 ng/mL (0.000-0.060)
[2017-08-08 20:12] VITALS: BP 150/73
[2017-08-08] MEDS ORDERED: DIOVAN80 MG PO (21:07)
[2017-08-08 23:07] VITALS: BP 150/73; Ht 172.7 cm; Wt 139.5 kg
[2017-08-09 01:46] LABS: CKMB 2.3 U/L (0.0-3.6); CREATINE KINASE 90 UL (21-232)
[2017-08-09 01:48] LABS: TROPONIN-I < 0.017 ng/mL (0.000-0.060)
[2017-08-09 02:32] VITALS: BP 117/56
[2017-08-09 06:12] LABS: BASOPHILS 0.1 % (0-2); EOSINOPHILS 2.8 % (0-7); HEMATOCRIT 37.7 % (42.0-54.0); HEMOGLOBIN 11.4 g/dL (13.5-17.5); IMMATURE GRANULOCYTES 0.2 % (0-5); LYMPHOCYTES 16.6 % (15-50); MCH 26.8 pg (26.0-34.0); MCHC 30.2 g/dL (31.0-37.0); MCV 88.5 fL (80.0-100.0); MEAN PLATELET VOLUME 10.9 fL (7.4-10.4); MONOCYTES 8.1 % (2-11); NEUTROPHILS 72.2 % (40-80); PLATELET COUNT 215 10x3/uL (130-400); RBC 4.26 10x6/uL (4.20-6.10); RDW 17.8 % (11.5-14.5); WBC 8.7 10x3/uL (4.8-10.8)
[2017-08-09 06:23] VITALS: BP 152/68
[2017-08-09 06:31] LABS: ANION GAP 11.1 mmol/L (8-16); CALCIUM 7.9 mg/dL (8.5-10.1); CARBON DIOXIDE 32.1 mmol/L (21.0-32.0); POTASSIUM - SERUM 4.2 mmol/L (3.5-5.1)
[2017-08-09 06:45] LABS: CREATININE - SERUM 1.3 mg/dL (0.6-1.3)
[2017-08-09 07:39] VITALS: BP 143/71
[2017-08-09] MEDS ORDERED: FUROSEMIDE20 MG PO (10:47)
[2017-08-09] MEDS ORDERED: K-TAB10 MEQ PO (10:47)
[2017-08-09 11:56] VITALS: BP 189/85
== END 2017-08-09 13:21 | disposition home or self-care (01) | DRG 293 ==
LOC: D.ER 09:17 → D.M2 11:42 → D.EDHOLD 11:42 → D.M2 17:54
PROVIDERS: Emergency Medicine; Internal Medicine Cardiovascular Disease
DX: I11.0 Hypertensive heart disease with heart failure (principal); I50.31 Acute diastolic (congestive) heart failure; I25.119 Atherosclerotic heart disease of native coronary artery with unspecified angina pectoris; Z95.1 Presence of aortocoronary bypass graft; E11.9 Type 2 diabetes mellitus without complications; E78.5 Hyperlipidemia, unspecified; Z91.11 Patient's noncompliance with dietary regimen; I44.0 Atrioventricular block, first degree; Z86.73 Personal history of transient ischemic attack (TIA), and cerebral infarction without residual deficits

== ENCOUNTER 2019-10-01 10:20 | Inpatient (IN) | payer BC ==
[~2019-10-01] VITALS: Ht 172.7 cm; Wt 142.3 kg
[~2019-10-01 10:20] MED LIST changes: +DIOVAN80 MG PO; +FUROSEMIDE20 MG PO; +K-TAB10 MEQ PO
[2019-10-01] MEDS ORDERED: JARDIANCE25 MG PO (11:05)
[2019-10-01 11:44] VITALS: BP 188/101
--- NOTE | 2019-10-01 11:47 | NUR ---
NOTIFIED RESPIRATORY FOR ABG
[2019-10-01 11:55] LABS: BASOPHILS 0.1 % (0-2); EOSINOPHILS 1.1 % (0-7); HEMATOCRIT 41.5 % (42.0-54.0); HEMOGLOBIN 12.9 g/dL (13.5-17.5); IMMATURE GRANULOCYTES 0.4 % (0-5); LYMPHOCYTES 18.6 % (15-50); MCH 29.7 pg (26.0-34.0); MCHC 31.1 g/dL (31.0-37.0); MCV 95.4 fL (80.0-100.0); MEAN PLATELET VOLUME 11.2 fL (7.4-10.4); MONOCYTES 6.8 % (2-11); PLATELET COUNT 190 10x3/uL (130-400); RBC 4.35 10x6/uL (4.20-6.10); RDW 14.8 % (11.5-14.5); WBC 7.9 10x3/uL (4.8-10.8)
[2019-10-01 12:44] LABS: APTT 29.2 SECONDS (22.8-39.4); INR 1.06 (0.85-1.17); PROTIME 13.8 SECONDS (11.6-15.0)
[2019-10-01 12:45] LABS: D-DIMER-QUANTITATIVE 1.71 ug/mLFEU (0.20-0.54)
[2019-10-01 12:53] LABS: CALC OSMOLALITY 293 mosm/kg (275-300); CALCIUM 8.9 mg/dL (8.5-10.1); CARBON DIOXIDE 30.6 mmol/L (21.0-32.0); CHLORIDE - SERUM 102 mmol/L (98-107); CREATININE - SERUM 0.9 mg/dL (0.6-1.3); POTASSIUM - SERUM 3.9 mmol/L (3.5-5.1); SODIUM 139 mmol/L (136-145); UREA NITROGEN 18 mg/dL (7-18); eGFR NON AFRICAN AMERICAN > 90 mL/min (90-120)
[2019-10-01 12:58] LABS: GLUCOSE 356 mg/dL (74-106)
[2019-10-01 13:17] LABS: ALBUMIN 2.9 g/dL (3.4-5.0); ALKALINE PHOSPHATASE 103 U/L (30-120); ALT (SGPT) 46 U/L (10-68); BILIRUBIN - TOTAL 0.91 mg/dL (0.2-1.3); C-REACTIVE PROTEIN 3.5 mg/dL (0.0-0.9); CKMB 2.1 U/L (0.0-3.6); CREATINE KINASE 101 UL (21-232); FERRITIN 201 ng/mL (3-244); PRO BNP 2131 pg/mL (0-125); PROTEIN - SERUM 7.7 g/dL (6.4-8.2)
[2019-10-01 13:20] LABS: TROPONIN-I 0.198 ng/mL (0.000-0.060)
--- NOTE | 2019-10-01 13:21 | NUR ---
TROPONIN ELEVATED 0.198, COOPER NOTIFIED
--- NOTE | 2019-10-01 14:02 | NUR ---
PT LEAVING FOR CT
--- NOTE | 2019-10-01 15:41 | NUR ---
SPECIMEN SENT TO LAB FOR REPEAT CARDIACS
--- NOTE | 2019-10-01 16:06 | NUR ---
ATTEMPTED REPORT, UNSUCESSFUL, LEONARD STATED NURSE WOULD RETURN CALL FOR REPORT.
[2019-10-01 16:56] LABS: CKMB 1.9 U/L (0.0-3.6); CREATINE KINASE 96 UL (21-232)
[2019-10-01 17:01] LABS: TROPONIN-I 0.213 ng/mL (0.000-0.060)
[2019-10-01 20:22] VITALS: BP 125/72; Ht 172.7 cm; Wt 142.3 kg
[2019-10-01 20:27] VITALS: BP 125/72
[2019-10-01 23:47] LABS: BILIRUBIN NEGATIVE (NEGATIVE); GLUCOSE 50 mg/dL (NEGATIVE); KETONE NEGATIVE (NEGATIVE); NITRITE NEGATIVE (NEGATIVE); SPECIFIC GRAVITY 1.015 (1.005-1.020); UROBILINOGEN NORMAL (NORMAL)
[2019-10-01 23:48] LABS: BACTERIA FEW /hpf (NEGATIVE); EPITHELIAL CELLS 0-5 /hpf (0-5); RED CELLS - URINE 0-5 /hpf (0-5); WHITE CELLS - URINE 0-5 /hpf (NEGATIVE)
[2019-10-02 00:02] LABS: CREATINE KINASE 85 UL (21-232)
[2019-10-02 00:09] LABS: TROPONIN-I 0.213 ng/mL (0.000-0.060)
[2019-10-02 05:42] LABS: BASOPHILS 0.1 % (0-2); EOSINOPHILS 0.8 % (0-7); HEMATOCRIT 39.8 % (42.0-54.0); HEMOGLOBIN 12.1 g/dL (13.5-17.5); IMMATURE GRANULOCYTES 0.2 % (0-5); LYMPHOCYTES 10.1 % (15-50); MCH 29.4 pg (26.0-34.0); MCHC 30.4 g/dL (31.0-37.0); MCV 96.6 fL (80.0-100.0); MONOCYTES 5.6 % (2-11); NEUTROPHILS 83.2 % (40-80); PLATELET COUNT 183 10x3/uL (130-400); RBC 4.12 10x6/uL (4.20-6.10); RDW 14.9 % (11.5-14.5)
[2019-10-02 05:51] LABS: WBC 10.1 10x3/uL (4.8-10.8)
[2019-10-02 06:07] LABS: ALBUMIN 2.7 g/dL (3.4-5.0); ALKALINE PHOSPHATASE 94 U/L (30-120); ALT (SGPT) 41 U/L (10-68); BILIRUBIN - TOTAL 0.76 mg/dL (0.2-1.3); CALC OSMOLALITY 290 mosm/kg (275-300); CARBON DIOXIDE 32.1 mmol/L (21.0-32.0); CHLORIDE - SERUM 103 mmol/L (98-107); CKMB 1.6 U/L (0.0-3.6); CREATINE KINASE 68 UL (21-232); CREATININE - SERUM 1.2 mg/dL (0.6-1.3); GLUCOSE 286 mg/dL (74-106); MAGNESIUM - SERUM 1.6 mg/dL (1.8-2.4); POTASSIUM - SERUM 3.9 mmol/L (3.5-5.1); SODIUM 140 mmol/L (136-145); UREA NITROGEN 18 mg/dL (7-18); eGFR NON AFRICAN AMERICAN 67 mL/min (90-120)
--- NOTE | 2019-10-02 07:10 | NUR ---
REPORT RECEIVED FROM BUSINESS SUPPORT LIAISON ANDPATIENT CARE ASSUMED. PATIENT LAYING IN BED ON BACK AWAKE, ALERT AND ORIENTED X 4. PATIENT DENIES ANY NEEDS OR PAIN. WILL CONTINUE WITH PLAN OF CARE. SR UP X 2 BED IN LOW POSITION AND CALL LIGHT IN REACH.
[2019-10-02 07:56] VITALS: BP 128/82
--- NOTE | 2019-10-02 10:30 | NUR ---
PATIENT IS STABLE AND UNCHANGED. ASSESMENT COMPLETED. PATIENT DENIES ANY NEEDS OR PAIN. WILL CONTINUE TO MONITOR. SR UP X 2 BED IN LOW POSITION AND CALL LIGHT IN REACH.
--- NOTE | 2019-10-02 14:18 | NUR ---
PATIENT RESTING COMFORTABLY. PATIENT IS STABLE AND UNCHANGED. WILL CONTINUE TO MONITOR. SR UPX 2 BED IN LOW POSITION AND CALL LIGHT IN REACH.
--- NOTE | 2019-10-02 16:15 | NUR ---
PATIENT STABLE AND UNCHANGED. PATIENT DENIES ANY NEEDS OR PAIN. SPOKE WITH AND ANSWERED QUESTIONS TO SATISFACTION. WILL CONTINUE TO MONITOR. SR UPX 2 BED IN LOW POSITION AND CALL LIGHT IN REACH.
[2019-10-02 20:00] VITALS: BP 141/85
--- NOTE | 2019-10-02 21:30 | NUR ---
PT LYING IN BED ALERT AND ORIENTED x4 NO SIGNS OF DISTRESS NOTED. CALL LIGHT WITH IN REACH WILL CONTINUE TO MONITOR
--- NOTE | 2019-10-03 01:18 | NUR ---
PT RESTING IN BED WITH EYES CLOSED. NO COMPLAINTS AT THIS TIME. CALL LIGHT WITH IN REACH WILL CONTINUE TO MONITOR
--- NOTE | 2019-10-03 02:55 | NUR ---
I have reviewed this patient and I concur with the Shift Assessment completed by the Licensed Practical Nurse today this shift.
[2019-10-03 04:00] VITALS: BP 144/81
[2019-10-03 06:33] LABS: BASOPHILS 0.1 % (0-2); EOSINOPHILS 1.5 % (0-7); HEMATOCRIT 40.6 % (42.0-54.0); HEMOGLOBIN 12.3 g/dL (13.5-17.5); IMMATURE GRANULOCYTES 0.2 % (0-5); LYMPHOCYTES 16.4 % (15-50); MCH 29.4 pg (26.0-34.0); MCHC 30.3 g/dL (31.0-37.0); MCV 97.1 fL (80.0-100.0); MEAN PLATELET VOLUME 11.2 fL (7.4-10.4); MONOCYTES 6.6 % (2-11); NEUTROPHILS 75.2 % (40-80); PLATELET COUNT 192 10x3/uL (130-400); RBC 4.18 10x6/uL (4.20-6.10); RDW 14.7 % (11.5-14.5); WBC 8.2 10x3/uL (4.8-10.8)
--- NOTE | 2019-10-03 07:10 | NUR ---
REPORT RECEIVED FROM IS ARCHITECT AND PATIENT CARE ASSUMED. PATIENT SITTING UP IN BED WATCHING TV. PATIENT DENIES ANY NEEDS OR PAIN. WILL CONTINUE WITH PLAN OF CARE. SR UP X 2 BED IN LOW POSITION AND CALL LIGHT IN REACH.
[2019-10-03 07:15] LABS: ALBUMIN 2.8 g/dL (3.4-5.0); ANION GAP 9.9 mmol/L (8-16); BILIRUBIN - TOTAL 0.71 mg/dL (0.2-1.3); CALCIUM 7.9 mg/dL (8.5-10.1); CARBON DIOXIDE 31.9 mmol/L (21.0-32.0); CHOL - HDL RATIO 5.3 ratio (2.3-4.9); CREATININE - SERUM 1.1 mg/dL (0.6-1.3); LDL-HDL RATIO 3.6 ratio (1.5-3.5); MAGNESIUM - SERUM 1.9 mg/dL (1.8-2.4); POTASSIUM - SERUM 3.8 mmol/L (3.5-5.1); PROTEIN - SERUM 7.4 g/dL (6.4-8.2)
[2019-10-03 08:27] VITALS: BP 158/91
--- NOTE | 2019-10-03 10:00 | NUR ---
PER ODILON ONEILL RN , PATIENT IS COVID NEGATIVE. PATIENT IS STABLE AND VSS. PATIENT DENIES ANY NEEDS OR PAIN. PATIENT TRANSFERRED OUT OF ISOLATION ROOM TO REGULAR ROOM. PATIENT ORIENTED TO ROOM. WILL CONTINUE TO MONITOR. SR UP X 2 BED IN LOW POSITION AND CALL LIGHT IN REACH.
[2019-10-03 11:52] VITALS: BP 123/86
--- NOTE | 2019-10-03 13:10 | NUR ---
PATIENT SITTING IN BS CHAIR WATCHING TV. PATIENT IS STABLE AND UNCHANGED. PATIENT DENIES ANY NEEDS OR PAIN. WILL CONTINUE TO MONITOR. CALL LIGHT IN REACH.
[2019-10-03 15:44] VITALS: BP 146/87
[2019-10-03 20:30] VITALS: BP 151/86
--- NOTE | 2019-10-03 23:44 | NUR ---
INITIAL ROUNDS COMPLETED AT 191 HRS. PT DENIED ANY DISCOMFORT. SHOWER DONE AND BED LINENS CHANGED BY 2029 HRS. PM FSBS 262. 6 UNITS REG INSULIN GIVEN SUB-Q TO UPPER R ARM PER S/S. ASSESSMENT COMPLETED AT 2149. VSS. SR PER CM HR 83. IV TO RAC SL. LUNGS DIMINISHED IN BASES BILAT. ZAVALA. PALPABLE PERIPHERAL PULSES. PT CURRENTLY SITTING IN CHAIR PLAYING ON PHONE. CALL LIGHT WITHIN REACH.
[2019-10-04 00:30] VITALS: BP 127/63
--- NOTE | 2019-10-04 01:46 | NUR ---
ADVIL 400MG PO GIVEN FOR C/O LEG PAIN.
--- NOTE | 2019-10-04 04:13 | NUR ---
PT RESTING WITH EYES CLOSED. RESP EVEN AND REGULAR. SR UP X1, CALL LIGHT WITHIN REACH.
[2019-10-04 04:45] VITALS: BP 127/73
--- NOTE | 2019-10-04 06:22 | NUR ---
VSS THROUGHOTU NIGHT. SR PER CM. AMFSBS 298. 6 UNITS REG INSULIN GIVEN SUB-Q TO UPPER R ARM. ZOFRAN 4MG SIVP GIVEN FOR C/O NAUSEA. NEEDS MET; WILL CONTINUE TO MONITOR.
--- NOTE | 2019-10-04 07:00 | NUR ---
RECEIVED REPORT. ASSUMED CARE OF PATIENT. CALL LIGHT WITHIN REACH. PATIENT RESTING ON RIGHT LATERAL SIDE WITH EYES CLOSED, EASILY AROUSED. RESP EVEN AND UNLABORED. PATIENT STATES HE REMAINS SLIGHTLY NAUSEATED BUT HAS ALREADY BEEN GIVEN MEDICATION FOR NAUSEA. TELEMETRY RATE 78.
[2019-10-04 07:21] LABS: BASOPHILS 0 % (0-2); EOSINOPHILS 1.2 % (0-7); HEMATOCRIT 40.3 % (42.0-54.0); HEMOGLOBIN 12.7 g/dL (13.5-17.5); IMMATURE GRANULOCYTES 0.1 % (0-5); MCH 30.1 pg (26.0-34.0); MCHC 31.5 g/dL (31.0-37.0); MCV 95.5 fL (80.0-100.0); MEAN PLATELET VOLUME 11.4 fL (7.4-10.4); MONOCYTES 7.2 % (2-11); NEUTROPHILS 70.5 % (40-80); PLATELET COUNT 177 10x3/uL (130-400); RBC 4.22 10x6/uL (4.20-6.10); RDW 14.8 % (11.5-14.5); WBC 7.3 10x3/uL (4.8-10.8)
[2019-10-04 07:32] LABS: ALBUMIN 2.8 g/dL (3.4-5.0); ANION GAP 9.9 mmol/L (8-16); BILIRUBIN - TOTAL 0.52 mg/dL (0.2-1.3); CALCIUM 7.8 mg/dL (8.5-10.1); CARBON DIOXIDE 30.5 mmol/L (21.0-32.0); CREATININE - SERUM 1.1 mg/dL (0.6-1.3); MAGNESIUM - SERUM 1.8 mg/dL (1.8-2.4); POTASSIUM - SERUM 3.4 mmol/L (3.5-5.1); PROTEIN - SERUM 7.3 g/dL (6.4-8.2)
--- NOTE | 2019-10-04 09:07 | NUR ---
PATIENT STATES HE WAS WEIGHED YESTERDAY ON A STAND UP SCALE AND HE WEIGHTED 311.
[2019-10-04 10:10] VITALS: BP 146/68
--- NOTE | 2019-10-04 12:10 | NUR ---
FSBS 327. 12 UNITS HUMULIN ADMINISTERED PER SLIDING SCALE.
[2019-10-04] MEDS ORDERED: COREG6.25 MG PO (13:23)
[2019-10-04] MEDS ORDERED: COZAAR50 MG PO (13:23)
[2019-10-04] MEDS ORDERED: SINGULAIR10 MG PO (13:24)
[2019-10-04] MEDS ORDERED: FLUTICASONE PRO16 GM NASAL (13:24)
[2019-10-04] MEDS ORDERED: K-DUR20 MEQ PO (13:25)
[2019-10-04] MEDS ORDERED: LASIX40 MG PO (13:25)
--- NOTE | 2019-10-04 14:00 | NUR ---
DISCHARGE INSTRUCTIONS PROVIDED TO PATIENT. PATIENT VERBALIZED UNDERSTANDING OF ALL INSTRUCTIONS PROVIDED. 20 GAUGE IV REMOVED FROM RIGHT FOREARM. CATHETER TIP INTACT. NO BLEEDING FROM SITE. 2X2 GAUZE APPLIED AND SECURED WITH BANDAID.
--- NOTE | 2019-10-04 15:00 | NUR ---
PATIENT LEFT UNIT VIA WHEELCHAIR AT THIS TIME. PATIENT DISCHARGED TO HOME IN NO ACUTE DISTRESS. PATIENT LEFT UNIT WITH ALL PERSONAL BELONGINGS.
--- NOTE | 2019-10-05 09:35 | MORECARE ---
CASE MANAGEMENT DISCHARGE SUMMARY PATIENT: LANNY DONG UNIT: [id number] ADM DATE: 10/01/19 AGE: 54 : [birth year] SEX: M ROOM/BED: D.2124 AUTHOR: DAYANARA MCMILLAN PHYSICIAN: REFERRING PHYSICIAN: MELANIE DAILEY MD DATE OF SERVICE: 10/05/19 Discharge Plan Patient Name: LANNY DONG [facility] [facility] 1965 Planned Disposition: Home Anticipated Discharge Date: Discharge Date: 10/04/2019 Expected LOS: Initial Reviewer: [email or web address] Initial Review Date: 10/01/2019 Generated: 10/05/19 10:35 am Patient Name: LANNY DONG Page [id number] at 0935 All edits/amendments must be made on the electronic document DICTATION DATE: 10/05/1935 VOCATIONAL REHABILITATION SPECIALIST: CHANDNI 10/05/19 0935 RPT#: [id number] DC DATE:10/04/19 STATUS: DIS IN [facility] [address] [place] [address] END OF REPORT
--- NOTE | 2019-10-05 09:44 | MORECARE ---
CASE MANAGEMENT DISCHARGE SUMMARY PATIENT: LANNY DONG UNIT: [id number] ADM DATE: 10/01/19 AGE: 54 : 67 SEX: M ROOM/BED: D.6904 AUTHOR: DEYANIRA,DOC PHYSICIAN: REFERRING PHYSICIAN: MELANIE DAILEY MD DATE OF SERVICE: 10/05/19 Discharge Plan Patient Name: LANNY DONG Facility: [facility]:[place] : 1965 Planned Disposition: Home Anticipated Discharge Date: Discharge Date: 10/04/2019 Expected LOS: Initial Reviewer: [email or web address] Initial Review Date: 10/01/2019 Generated: 10/05/19 10:43 am Comments DCP- Discharge Planning Updated by [email or web address]: Emelia Yousif on 10/05/19 8:[address] LATE ENTRY 10/04/19 Patient Name: LANNY DONG Admission Status: ER Accout number: [id number] Admission Date: 10-01-2019 : 1965 Admission Diagnosis:HEART FAILURE, UNSPECIFIED Attending: MELANIE DAILEY Current LOS: 3 Anticipated DC Date: Planned Disposition: Home Primary Insurance: [employer] TRUE BLUE PPO Discharge Planning Comments: CM MET WITH PATIENT TO DISCUSS D/C PLANNING AFTER OBTAINING VERBAL CONSENT. PATIENT LIVES AT HOME WITH HIS AND PLANS TO RETURN THERE UPON DISCHARGE AND FEELS THIS IS A SAFE DISCHARGE. PATIENT DENIES ANY MEDICAL EQUIPMENT OR HOME HEALTH SERVICES. PATIENT DENIES ANY DISCHARGE NEEDS. PATIENT WILL HAVE FAMILY TRANSPORT HIM HOME. CM WILL CONTINUE TO FOLLOW AND ASSIST NEEDED WITH DISCHARGE PLANNING / NEEDS. Supervisor Wall [employer] Department: Emelia Yousif DCPIA - Discharge Planning Initial Assessment Updated by [email or web address]: Emelia Yousif on 10/05/19 9:35 am * Is the patient Alert and Oriented? Yes * How many steps to enter\exit or inside your home? RAMP * PCP ZAIDA * [facility] [place] * Preadmission Environment Home with Family * ADLs Independent * Equipment None * List name and contact numbers for known caregivers / representatives who currently or will assist patient after discharge: CHIKA DONG - SPOUSE - [phone] CARMEN SILVA - DAUGHTER -[phone] * Verbal permission to speak to the caregivers and representatives has been obtained from the patient. Yes * Community resources currently utilized None * Additional services required to return to the preadmission environment? No * Can the patient safely return to the preadmission environment? Yes * Has this patient been hospitalized within the prior 30 days at any hospital? No Last DP export: 10/05/19 8:35 am Patient Name: LANNY DONG Page [id number] at 0944 All edits/amendments must be made on the electronic document DICTATION DATE: 10/05/19942 MANUFACTURING ENGINEER ASSEMBLY: DM 10/05/19942 RPT#: [id number] DC DATE:10/04/19 STATUS: DIS IN [facility] [address] [place] [address] END OF REPORT
== END 2019-10-04 15:00 | disposition home or self-care (01) | DRG 291 ==
LOC: D.ER 10:20 → D.M2 15:51
PROVIDERS: Family Medicine; ADMIT Family Medicine; ATTEND Family Medicine
DX: I11.0 Hypertensive heart disease with heart failure (principal); J96.22 Acute and chronic respiratory failure with hypercapnia; J96.21 Acute and chronic respiratory failure with hypoxia; Z68.43 Body mass index [BMI] 50.0-59.9, adult; D64.9 Anemia, unspecified; I25.10 Atherosclerotic heart disease of native coronary artery without angina pectoris; E66.01 Morbid (severe) obesity due to excess calories; I50.41 Acute combined systolic (congestive) and diastolic (congestive) heart failure; E78.5 Hyperlipidemia, unspecified; K21.9 Gastro-esophageal reflux disease without esophagitis; J44.9 Chronic obstructive pulmonary disease, unspecified; E11.65 Type 2 diabetes mellitus with hyperglycemia; Z86.73 Personal history of transient ischemic attack (TIA), and cerebral infarction without residual deficits

== ENCOUNTER 2020-09-15 17:22 | Emergency (ER) | payer BC ==
[~2020-09-15] VITALS: Ht 172.7 cm; Wt 150.0 kg
[~2020-09-15 17:22] MED LIST changes: +COREG6.25 MG PO; +COZAAR50 MG PO; +FLUTICASONE PRO16 GM NASAL; +JARDIANCE25 MG PO; +K-DUR20 MEQ PO; +LASIX40 MG PO; +SINGULAIR10 MG PO
[2020-09-15 17:27] VITALS: BP 169/96; Ht 172.7 cm; Wt 150.0 kg
[2020-09-15 18:03] LABS: BASOPHILS 0.2 % (0-2); EOSINOPHILS 1.2 % (0-7); HEMATOCRIT 49.2 % (42.0-54.0); HEMOGLOBIN 16.2 g/dL (13.5-17.5); IMMATURE GRANULOCYTES 0.4 % (0-5); LYMPHOCYTE ABS# 2.24 10x3/uL (1.32-3.57); LYMPHOCYTES 18.5 % (15-50); MCH 31.2 pg (26.0-34.0); MCHC 32.9 g/dL (31.0-37.0); MCV 94.6 fL (80.0-100.0); MEAN PLATELET VOLUME 11.9 fL (7.4-10.4); MONOCYTES 6.4 % (2-11); NEUTROPHILS 73.3 % (40-80); PLATELET COUNT 176 10x3/uL (130-400); RDW 13.3 % (11.5-14.5); WBC 12.1 10x3/uL (4.8-10.8)
[2020-09-15 18:04] LABS: APTT 26.1 SECONDS (22.8-39.4); INR 1.03 (0.85-1.17); PROTIME 12.5 SECONDS (11.6-15.0)
[2020-09-15 18:05] LABS: CALC OSMOLALITY 293 mosm/kg (275-300); CALCIUM 9.2 mg/dL (8.5-10.1); CARBON DIOXIDE 27.9 mmol/L (21.0-32.0); CHLORIDE - SERUM 102 mmol/L (98-107); CREATININE - SERUM 1.3 mg/dL (0.6-1.3); GLUCOSE 353 mg/dL (74-106); POTASSIUM - SERUM 4.8 mmol/L (3.5-5.1); SODIUM 137 mmol/L (136-145); UREA NITROGEN 30 mg/dL (7-18); eGFR NON AFRICAN AMERICAN 61 mL/min (90-120)
[2020-09-15 18:19] LABS: ALBUMIN 3.1 g/dL (3.4-5.0); ALKALINE PHOSPHATASE 96 U/L (30-120); ALT (SGPT) 31 U/L (10-68); BILIRUBIN - TOTAL 0.38 mg/dL (0.2-1.3); CKMB 2.8 U/L (0.0-3.6); CREATINE KINASE 79 UL (21-232); MAGNESIUM - SERUM 2.2 mg/dL (1.8-2.4); PROTEIN - SERUM 7.6 g/dL (6.4-8.2); THYROID STIMULATING HORMONE 2.93 uIU/mL (0.36-3.74)
[2020-09-15 18:20] LABS: TROPONIN-I < 0.017 ng/mL (0.000-0.060)
[2020-09-15] MEDS ORDERED: ZANAFLEX4 MG PO (18:51)
[2020-09-15] MEDS ORDERED: NAPROSYN500 MG PO (18:51)
== END 2020-09-15 19:32 | disposition home or self-care (01) ==
LOC: D.ER 17:22
PROVIDERS: Family Medicine
DX: R20.2 Paresthesia of skin (principal); E11.65 Type 2 diabetes mellitus with hyperglycemia; N18.9 Chronic kidney disease, unspecified; Z79.84 Long term (current) use of oral hypoglycemic drugs; I12.9 Hypertensive chronic kidney disease with stage 1 through stage 4 chronic kidney disease, or unspecified chronic kidney disease